=== PATIENT | female | born 1940 | race Caucasian/White ===

== ENCOUNTER 2021-08-11 16:16 | Inpatient (IN) | payer MEDICARE ==
[~2021-08-11] VITALS: Ht 147.3 cm; Wt 92.7 kg
[~2021-08-11 16:16] MED LIST: ASPI325T8 PO; BACL10TA PO; HYDR-2145 PO; HYDR-2765 PO; HYDROCORTISONE28 G1 TP; IBUP-1060 PO; LEVE500T56 PO; LISI-130 PO; LORA2TAB PO; OXYC1TAB15 PO; PRED20TA PO; TRAM50TA PO
--- NOTE | 2021-08-11 16:22 | PHYS DOC ---
Past Medical History Past Medical History: CHF, COPD, Hypertension Additional Past Medical Histor: Restless leg syndrome, STROKE >5YRS, UTERINE CANCER Past Surgical History: Hysterectomy Smoking Status: Former Smoker Alcohol Use: Occasionally Drug Use: None General Adult EDM: Chief Complaint: SHORTNESS OF BREATH HPI: HPI: Patient is a 80 year old female brought in by EMS for progressively worsening dyspnea for the past several weeks. The patient is an extremely poor historian. She cannot articulate any specific details of her illness. She wears supplemental oxygen at all times. She reports that she is not sure why she does so. Records indicate she has a history of COPD. Patient denies chest pain. She has had progressive lower extremity swelling for some time. She reports that she started coughing yesterday. She denies sputum production or hemoptysis. She denies fevers or chills. She denies dizziness. She is generally weak, denies focal weakness. Denies any acute injury or trauma. She denies recent hospitalization, travel, surgery. No recent known sick contacts. Her granddaughter reports that the patient is a full code. The patient is an extremely poor historian, does not know any of her medications. She reports that her granddaughter and her son help give her medications, though she is not sure what they are. On arrival she appears to be in atrial fibrillation with RVR. The patient has no known history of any arrhythmia. Records here do not indicate a history of A. fib Review of Systems: Review of Systems: Constitutional: Denies fever or chills. [] HENT: Denies nasal congestion or sore throat. [] Respiratory: Cough, dyspnea Cardiovascular: Denies chest pain. Peripheral edema. GI: Denies abdominal pain, nausea, vomiting : Denies urinary symptoms Musculoskeletal: Denies back pain or joint pain. [] Integument: Denies rash. [] Neurologic: Denies headache, focal weakness or sensory changes. Denies weakness. Denies head injury, syncope. Psychiatric: Denies depression or anxiety. [] Heart Score: C/O Chest Pain: No Risk Factors: Risk Factors: DM, Current or recent (<one month) smoker, HTN, HLP, family history of CAD, obesity. Risk Scores: Score 0 - 3: 2.5% MACE over next 6 weeks - Discharge Home Score 4 - 6: 20.3% MACE over next 6 weeks - Admit for Clinical Observation Score 7 - 10: 72.7% MACE over next 6 weeks - Early Invasive Strategies Allergies: Allergies: Allergies Coded Allergies Type Severity Reaction Last Updated Verified Penicillins Allergy Intermediate 06/15/21 Yes Sulfa (Sulfonamide Antibiotics) Allergy Intermediate 06/15/21 Yes Physical Exam: PE: Constitutional: She is very frail and chronically ill-appearing. She is moderately acutely ill appearing. Manifests at least moderate respiratory distress. She is relatively disheveled. HENT: Normocephalic, atraumatic, oropharynx is patent and clear Eyes: Sclera are anicteric. Mild conjunctival pallor Neck: Normal range of motion, no tenderness, supple, no stridor. Achy midline. JVD noted. Cardiovascular:; Irregularly irregular, tachycardic, rhythm consistent with atrial fibrillation with RVR. +2 radial pulses and +2 dorsalis pedis pulses bilaterally Lungs & Thorax: Moderate tachypnea, no retractions, speaks in full and clear sentences. Bibasilar rales and rhonchi noted. No wheezes. No cyanosis. Abdomen: Abdomen is obese, soft, nondistended, nontender to palpation. Skin: Warm, dry, no erythema, no rash. Relatively poor skin turgor. Back: No tenderness, no deformity Extremities: No tenderness, no cyanosis, no clubbing, ROM intact, bilateral 2+ symmetric pitting lower extremity edema Neurologic: He is awake, alert and oriented x3, no facial asymmetry, moves all 4 extremities equally, bilateral seismic computer strength equal, sensation grossly intact, she manifest symmetric and generalized weakness. Speech is fluent. Psychologic: Affect is flat EKG: EKG: EKG is interpreted at 1630 Rhythm is atrial fibrillation with RVR Rate is 141 bpm No STEMI Radiology/Procedures: Radiology/Procedures: IMAGING REPORT Signed PATIENT: NISREEN MONTES DE OCA ACCOUNT: [id number] : 1940 LOCATION: ER AGE: 80 SEX: F EXAM STATUS: PRE ER ORD. PHYSICIAN: KRISTI REAGAN DO REASON: dyspnea, cough PROCEDURE: PORTABLE CHEST 1V AP chest. HISTORY: Dyspnea, cough AP view was taken of the chest. Patient's taken a poor inspiration. The heart is enlarged. There is density in both lung bases suggesting pleural effusions. There is mild atelectasis or infiltrates in the lung bases more on the left than on the right. Mild vascular congestion is possible. There is arthritis in both shoulders. IMPRESSION: 1. Probable pleural effusions. 2. Left base atelectasis or infiltrate. 3. Mild vascular congestion. Electronically signed by: Kwabena Swain MD (08/11/2021 4:42 PM) [facility] DICTATED and SIGNED BY: KWABENA SWAIN MD DATE: 08/11/21 [id number] 0 Course & Med Decision Making: Course & Med Decision Making Pertinent Labs and Imaging studies reviewed. (See chart for details) P.o. aspirin given. IV of diltiazem bolus and diltiazem drip are ordered. Subcutaneous Lovenox is ordered. IV furosemide is ordered. Chest x-ray demonstrates pulmonary edema and bibasilar pleural effusions. I have discussed the findings, differential diagnosis and plan of care with the patient. The patient's granddaughter is contacted. The patient is comfortable with the plan for admission to the hospital. Advanced directive is full code. I have recommended hospitalization for normally further evaluation care of new onset atrial fibrillation, but management of congestive heart failure exacerbation, continued respiratory support and cardiology consultation. The patient is comfortable with this plan. She is accepted for admission by Dr. Mai Lyon. Filippo Disclaimer: Filippo Disclaimer: This electronic medical record was generated, in whole or in part, using a voice recognition dictation system. Departure Departure Impression: Primary Impression: Atrial fibrillation with rapid ventricular response Additional Impressions: Congestive heart failure Pleural effusion Pulmonary edema Chronic respiratory failure with hypoxia Disposition: ADMITTED INPATIENT Admitting Physician: Mai Lyon Condition: GUARDED Referrals: MAI LYON MD (PCP) KRISTI REAGAN DO Aug 11, 2021 16:22
--- NOTE | 2021-08-11 16:44 | RAD ---
AP chest. HISTORY: Dyspnea, cough AP view was taken of the chest. Patient's taken a poor inspiration. The heart is enlarged. There is d ensity in both lung bases suggesting pleural effusions. There is mild atelectasis or infiltrates in t he lung bases more on the left than on the right. Mild vascular congestion is possible. There is arth ritis in both shoulders. IMPRESSION: 1. Probable pleural effusions. 2. Left base atelectasis or infiltrate. 3. Mild vascular congestion. Electronically signed by: Kwabena Swain MD (08/11/2021 4:42 PM) [facility]
[2021-08-11 17:12] LABS: BASO # 0.1 x10^3/uL (0.0-0.2); BASO % 1 % (0-3); EOS % 0 % (0-3); HEMATOCRIT 40.6 % (36.0-47.0); HEMOGLOBIN 12.9 g/dL (12.0-15.5); LYMPH # 1.2 x10^3/uL (1.0-4.8); LYMPH % 11 % (24-48); MEAN CORPUSCULAR HEMOGLOBIN 28 pg (25-35); MEAN CORPUSCULAR HGB CONC 32 g/dL (31-37); MEAN CORPUSCULAR VOLUME 88 fL (79-100); MONO # 0.6 x10^3/uL (0.0-1.1); MONO % 5 % (0-9); NEUT # 9.2 x10^3/uL (1.8-7.7); NEUT % 83 % (31-73); PLATELET COUNT 271 x10^3/uL (140-400); RED BLOOD COUNT 4.63 x10^6/uL (3.50-5.40); RED CELL DISTRIBUTION WIDTH 18.1 % (11.5-14.5); WHITE BLOOD COUNT 11.1 x10^3/uL (4.0-11.0)
[2021-08-11 17:21] LABS: PROTHROMBIN TIME PATIENT 13.6 SEC (11.7-14.0)
[2021-08-11 17:30] LABS: CALCIUM 8.8 mg/dL (8.5-10.1); CREATININE 0.8 mg/dL (0.6-1.0); GFR 68.8; POTASSIUM 4.7 mmol/L (3.5-5.1)
[2021-08-11 17:35] LABS: ALBUMIN 3.2 g/dL (3.4-5.0); ALBUMIN/GLOBULIN RATIO 0.7 (1.0-1.7); TOTAL PROTEIN 7.9 g/dL (6.4-8.2)
[2021-08-11 17:53] LABS: INFLUENZA A PATIENT NEGATIVE (NEGATIVE); INFLUENZA B PATIENT NEGATIVE (NEGATIVE)
[2021-08-11] MEDS ORDERED: FUROSEMIDE 20 MG/2 ML VIAL. IVP ONE (19:15)
--- NOTE | 2021-08-11 19:30 | NUR ---
Pt arrived to room 675 per cart pt assisted to bed vs obtained and stable tele monitor applied pt. Assessment completed pt denied pain at this time pt is a poor historian. Call light placed in reach will resume care and continue to monitor pt.
[2021-08-11 19:37] VITALS: BP 132/58
[2021-08-11] MEDS ORDERED: ONDANSETRON PF 4 MG/2 ML VIAL. IVP PRN (20:00)
[2021-08-11] MEDS ORDERED: ACETAMINOPHEN 325 MG TABLET. PO PRN (20:00)
[2021-08-11 20:18] VITALS: BP 138/76
[2021-08-11 21:18] VITALS: BP 143/75
[2021-08-11 22:07] VITALS: BP 156/67
[2021-08-11 22:18] VITALS: BP 136/55
[2021-08-11 23:18] VITALS: BP 146/80
[2021-08-12] VITALS (20 sets, daily range): BP systolic 103–169; BP diastolic 52–87
--- NOTE | 2021-08-12 08:34 | PDOC ---
Provider Note Date of Service: DATE: 08/12/21 TIME: 08:34 Provider Note dictated Justifications for Admission Other Justification MAI LYON MD Aug 12, 2021 08:34
[2021-08-12] MEDS ORDERED: FUROSEMIDE 40 MG/4 ML VIAL. IVP ONE (08:45)
[2021-08-12] MEDS: levETIRAcetam 500 MG TABLET PO SCH ×2 (09:00→21:11)
--- NOTE | 2021-08-12 09:35 | PDOC2 ---
ZAIRA CHI DISH PERSON 08/12/21 0935: CARDIAC CONSULT DATE OF CONSULT Date of Consult DATE: 08/12/21 TIME: 09:27 REASON FOR CONSULT Reason for Consult: CHF, AFIB REFERRING PHYSICIAN Referring Physician: Dr. Coates SOURCE Source: Chart review, Patient HISTORY OF PRESENT ILLNESS HISTORY OF PRESENT ILLNESS This is an 80 yo female who presented secondary to shortness of breath. Was noted in AFIB with RVR, which prompted this consult. PAST MEDICAL HISTORY Cardiovascular: CHF, HTN Pulmonary: COPD CENTRAL NERVOUS SYSTEM: CVA GI: GERD Heme/Onc: Cancer (uterine ) Psych: Anxiety Musculoskeletal: Osteoarthritis PAST SURGICAL HISTORY Past Surgical History: Hysterectomy FAMILY HISTORY Family History: Hypertension SOCIAL HISTORY Smoke: Quit ALCOHOL: none Drugs: None Lives: with Family CURRENT MEDICATIONS CURRENT MEDICATIONS Current Medications Medications (Trade) Dose Ordered Sig/Silke Route PRN Reason Start Time Stop Time Status Last Admin Dose Admin Diltiazem HCl (Cardizem Iv Push) 10 mg 1X ONCE IVP 08/11/21 16:45 08/11/21 16:46 DC 08/11/21 17:07 Diltiazem HCl 125 mg/Sodium Chloride 125 ml @ 5 mls/hr CONT PRN IV PER PROTOCOL 08/11/21 19:15 08/12/21 05:15 Furosemide (Lasix) 20 mg 1X ONCE IVP 08/11/21 19:15 08/11/21 19:16 DC 08/11/21 20:14 Enoxaparin Sodium (Lovenox 100mg Syringe) 100 mg 1X ONCE SQ 08/11/21 19:15 08/11/21 19:16 DC 08/11/21 20:14 ALLERGIES ALLERGIES: Coded Allergies: Penicillins (Verified Allergy, Intermediate, 06/15/21) Sulfa (Sulfonamide Antibiotics) (Verified Allergy, Intermediate, 06/15/21) ROS Review of System 14 point ROS conducted with pertinent positives noted above in HPI PHYSICAL EXAM General: Alert, Oriented X3, Cooperative, No acute distress HEENT: Atraumatic, Mucous membr. moist/pink Lungs: Other (diminished bases) Heart: Other (AFIB, rate controlled ) Abdomen: Soft Extremities: Other (trace bilateral pedal edema ) Skin: No significant lesion Neuro: Sensation intact Psych/Mental Status: Mental status NL, Mood NL MUSCULOSKELETAL: Osteoarthritic changes both hands VITALS/I&O VITALS/I&O: Vital Signs Date Time Temp Pulse Resp B/P (MAP) Pulse Ox O2 Delivery O2 Flow Rate FiO2 08/12/21 07:00 97.6 98 18 159/82 (107) 97 Nasal Cannula 3.0 97.6 I & O 08/11/21 08/11/21 08/12/21 15:00 23:00 07:00 Intake Total 340 ml 100 ml Output Total 1625 ml Balance 340 ml -1525 ml LABS Lab: Laboratory Tests Test 08/11/21 16:50 08/11/21 17:09 White Blood Count 11.1 x10^3/uL (4.0-11.0) H Red Blood Count 4.63 x10^6/uL (3.50-5.40) Hemoglobin 12.9 g/dL (12.0-15.5) Hematocrit 40.6 % (36.0-47.0) Mean Corpuscular Volume 88 fL (79-100) Mean Corpuscular Hemoglobin 28 pg (25-35) Mean Corpuscular Hemoglobin Concent 32 g/dL (31-37) Red Cell Distribution Width 18.1 % (11.5-14.5) H Platelet Count 271 x10^3/uL (140-400) Neutrophils (%) (Auto) 83 % (31-73) H Lymphocytes (%) (Auto) 11 % (24-48) L Monocytes (%) (Auto) 5 % (0-9) Eosinophils (%) (Auto) 0 % (0-3) Basophils (%) (Auto) 1 % (0-3) Neutrophils # (Auto) 9.2 x10^3/uL (1.8-7.7) H Lymphocytes # (Auto) 1.2 x10^3/uL (1.0-4.8) Monocytes # (Auto) 0.6 x10^3/uL (0.0-1.1) Eosinophils # (Auto) 0.0 x10^3/uL (0.0-0.7) Basophils # (Auto) 0.1 x10^3/uL (0.0-0.2) Prothrombin Time 13.6 SEC (11.7-14.0) Prothrombin Time INR 1.0 (0.8-1.1) Activated Partial Thromboplast Time 31 SEC (24-38) Sodium Level 141 mmol/L (136-145) Potassium Level 4.7 mmol/L (3.5-5.1) Chloride Level 94 mmol/L (98-107) L Carbon Dioxide Level 42 mmol/L (21-32) H Anion Gap 5 (6-14) L Blood Urea Nitrogen 23 mg/dL (7-20) H Creatinine 0.8 mg/dL (0.6-1.0) Estimated GFR (Cockcroft-Gault) 68.8 BUN/Creatinine Ratio 29 (6-20) H Glucose Level 122 mg/dL (70-99) H Lactic Acid Level 1.6 mmol/L (0.4-2.0) Calcium Level 8.8 mg/dL (8.5-10.1) Magnesium Level 2.0 mg/dL (1.8-2.4) Total Bilirubin 1.0 mg/dL (0.2-1.0) Aspartate Amino Transferase (AST) 15 U/L (15-37) Alanine Aminotransferase (ALT) 15 U/L (14-59) Alkaline Phosphatase 76 U/L (46-116) Troponin I High Sensitivity 16 ng/L (4-50) QZ-Mtg-S-Type Natriuretic Peptide 4059 pg/mL (0-449) H Total Protein 7.9 g/dL (6.4-8.2) Albumin 3.2 g/dL (3.4-5.0) L Albumin/Globulin Ratio 0.7 (1.0-1.7) L Influenza Type A Antigen Negative (NEGATIVE) Influenza Type B Antigen Negative (NEGATIVE) SARS-CoV-2 Antigen (Rapid) Negative (NEGATIVE) Laboratory Tests 08/11/21 16:50 Laboratory Tests 08/11/21 16:50 ASSESSMENT/PLAN ASSESSMENT/PLAN 1. Acute on chronic respiratory failure 2. Acute on chronic probable diastolic CHF; improved s/p IV diuresis 3. New onset AFIB presenting with RVR; On Cardizem gtt for rate control. Xarelto added for stroke prophylaxis 4. Hypertension; mildly elevated 5. Hyperlipidemia 6. COPD 7. H/o CVA Recommendations TSH, lipids Echo to assess LV systolic function Mild diuresis Start oral Cardizem for rate control Titrate off gtt as able Xarelto added for stroke prophylaxis Outpatient ischemic evaluation Consider outpatient cardioversion if patient remains in AFIB Supportive care Further pending above. KIMBERLEY JUAREZ MD 08/12/21 1707: CARDIAC CONSULT ASSESSMENT/PLAN ASSESSMENT/PLAN Patient seen and examined. Agree with SPEECH SCIENTIST's assessment and plan. Acute on chronic diastolic heart failure better compensated Atrial fibrillation, newly diagnosed, rate better controlled Change Cardizem gtt. to p.o. Agree with Xarelto for stroke prophylaxis Check 2D echo to assess LV systolic function Plan outpatient cardioversion and ischemic evaluation Thank you for your consultation ZAIRA CHI APRN Aug 12, 2021 09:35 KIMBERLEY JUAREZ MD Aug 12, 2021 17:07
[2021-08-12] MEDS: LISINOPRIL 20 MG TABLET PO SCH (09:53)
[2021-08-12] MEDS: hydroCHLOROthiazide 25 MG TABLET PO SCH (09:53)
[2021-08-12] MEDS: traMADol 50 MG TABLET PO SCH ×2 (09:54→21:11)
--- NOTE | 2021-08-12 11:03 | HP ---
DATE OF SERVICE: 08/12/2021 ADMIT DATE: 08/11/2021 CHIEF COMPLAINT: Shortness of breath. HISTORY OF PRESENT ILLNESS: An 80-year-old white female with known oxygen-dependent COPD and mild diabetes, came in short of breath for the last 2 or 3 days. She denies chest pain, hemoptysis, fever, sputum or any other specific symptoms. She lives apparently in a smoking household, but does not smoke herself. Chest x-ray showed mild pleural effusions and she was found to be in atrial fibrillation with rapid response. Duration of this is unknown and has not been determined before. PAST MEDICAL HISTORY: Multiple. MEDICATIONS: Listed per the chart. She is a diet-controlled diabetic. ALLERGIES: PENICILLIN AND SULFA. She has not come to the office regularly given her wheelchair bound status. SOCIAL HISTORY: Lives with family. She has not smoked for 10 years. Denies alcohol abuse or high salt intake. FAMILY HISTORY: Unremarkable. REVIEW OF SYSTEMS: No other complaints. OBJECTIVE: ENT: All within normal limits. NECK: No thyroid enlargement, masses, or bruits. LUNGS: Decreased breath sounds with few scattered wheezes. No tachypnea. CARDIOVASCULAR: Irregular rate, rate is 90-100. No S3 or murmurs heard. ABDOMEN: Obese, soft and nontender. EXTREMITIES: No pretibial edema. Good pedal and radial pulses. No joint or skin lesions. NEUROLOGIC: Physiologic and nonfocal. Gait was not tested. Moves all extremities. Oriented x 4. ASSESSMENT: Atrial fibrillation with rapid ventricular response, duration is undetermined. Etiology most likely chronic obstructive pulmonary disease, but could have underlying cardiomyopathy or even coronary artery disease as well. Her chronic obstructive pulmonary disease is stable. Blood work unremarkable. PLAN: TSH, echo, IV Lasix, IV diltiazem and we will add Xarelto for now for embolic prophylaxis given her high risk status. BAM/ARIANNA DR: Lilliam TID: [id number]
[2021-08-12] MEDS: IPRATRPIUM/ALBUTEROL 0.5/2.5MG 3 ML NEBU. NEB SCH ×3 (12:00→20:00)
--- NOTE | 2021-08-12 14:43 | NUR ---
SS following for discharge planning. SS reviewed pt chart and discussed with pt RN. Pt is from home with granddaughter and is currently requiring oxygen at three liters nasal canula. COVID19 negative. No home oxygen. PT ordered. Cardiology following. SS will continue to follow for discharge planning.
[2021-08-12] MEDS: RIVAROXABAN 15 MG TABLET. PO SCH (16:36)
[2021-08-12] MEDS ORDERED: CARB200T4 PO (18:58)
--- NOTE | 2021-08-12 19:50 | NUR ---
Pt in bed assessment completed vss poc explained dpt reoriented to surroundings will resume care and continue to monitor pt. Call light in reach bed alarm set.
[2021-08-12] MEDS ORDERED: NALOXONE 0.4 MG/ML VIAL. ONE ×2 (23:25→23:30)
--- NOTE | 2021-08-12 23:50 | NUR ---
Pt o2 sat decreased to 72% after Scheduled HS Ativan and tramadol pt placed on venti mask @50% pt spo2 93% will monitor pt.
[2021-08-13 02:22] VITALS: BP 137/63
[2021-08-13 05:40] LABS: CHOLESTEROL/HDL RATIO 2.5
[2021-08-13 07:00] VITALS: BP 132/59
[2021-08-13] MEDS: levETIRAcetam 500 MG TABLET PO SCH (07:45)
[2021-08-13] MEDS: IPRATRPIUM/ALBUTEROL 0.5/2.5MG 3 ML NEBU. NEB SCH ×4 (08:00→20:00)
--- NOTE | 2021-08-13 08:27 | PDOC ---
Provider Note Date of Service: DATE: 08/13/21 TIME: 08:26 Provider Note sedated after loraz. may not take at home- tsh ok, echo pending , af rate ok on po- cont same,reduce loraz to 0.5, echo- rest same Justifications for Admission Other Justification MAI LYON MD Aug 13, 2021 08:27
[2021-08-13] MEDS ORDERED: traMADol 50 MG TABLET PO PRN (08:30)
[2021-08-13] MEDS: hydroCHLOROthiazide 25 MG TABLET PO SCH (09:40)
[2021-08-13] MEDS: LISINOPRIL 20 MG TABLET PO SCH (09:41)
[2021-08-13 11:00] VITALS: BP 140/60
--- NOTE | 2021-08-13 14:32 | NUR ---
SS following up with discharge planning. SS reviewed pt chart and discussed with pt RN. Pt is currently requiring oxygen at two liters nasal canula. COVID19 negative. Pt has no home oxygen. Cardiology following. SS will continue to follow for discharge planning.
[2021-08-13 15:00] VITALS: BP 133/68
--- NOTE | 2021-08-13 16:32 | PDOC ---
PROGRESS NOTES Date of Service: DATE: 08/13/21 TIME: 16:29 Subjective Subjective Somnolent Objective Objective Vital Signs Date Time Temp Pulse Resp B/P (MAP) Pulse Ox O2 Delivery O2 Flow Rate FiO2 08/13/21 15:00 97.8 91 20 133/68 (89) 95 Nasal Cannula 2.0 97.8 Intake and Output 08/13/21 07:00 Intake Total 660 ml Output Total 3150 ml Balance -2490 ml Intake Oral 660 ml Output Urine Total 3150 ml Physical Exam Abdomen: Soft Heart: Other (AFIB, rate controlled ) Extremities: Other (trace bilateral pedal edema ) General: Alert, Oriented X3, Cooperative, No acute distress HEENT: Atraumatic, Mucous membr. moist/pink Lungs: Other (diminished bases) MUSCULOSKELETAL: Osteoarthritic changes both hands Neuro: Sensation intact Psych/Mental Status: Mental status NL, Mood NL Skin: No significant lesion Assessment Assessment 1. Acute on chronic respiratory failure 2. Acute on chronic probable diastolic CHF; improved s/p IV diuresis 3. New onset AFIB presenting with RVR; rate better controlled 4. Hypertension; controlled 5. Hyperlipidemia 6. COPD 7. H/o CVA Recommendations Continue Cardizem for rate control and Xarelto for stroke prophylaxis Echo to assess LV systolic function pending Outpatient ischemic evaluation Consider outpatient cardioversion if patient remains in AFIB Plan Plan of Care Problems Medical Problems: (1) Atrial fibrillation with rapid ventricular response Status: Acute (2) CHF exacerbation Status: Acute (3) Chronic respiratory failure Status: Acute (4) Chronic respiratory failure with hypoxia Status: Acute (5) Congestive heart failure Status: Acute (6) Pleural effusion Status: Acute (7) Pulmonary edema Status: Acute Comment Review of Relevant I have reviewed the following items mehul (where applicable) has been applied. Labs Laboratory Tests Test 08/13/21 04:00 Triglycerides Level 81 mg/dL (0-150) Cholesterol Level 130 mg/dL (0-200) LDL Cholesterol, Calculated 61 mg/dL (0-100) VLDL Cholesterol, Calculated 16 mg/dL (0-40) Non-HDL Cholesterol Calculated 77 mg/dL (0-129) HDL Cholesterol 53 mg/dL (40-60) Cholesterol/HDL Ratio 2.5 Microbiology 08/11/21 Blood Culture - Preliminary, Resulted NO GROWTH AFTER 1 DAY Medications Current Medications Diltiazem HCl (Cardizem 24hr Cd) 300 mg DAILY PO Last administered on 08/13/21at 09:40; Start 08/12/21 at 17:00 Lorazepam (Ativan) 0.5 mg HS PO ; Start 08/13/21 at 21:00 Lorazepam (Ativan) 2 mg HS PO Last administered on 08/12/21at 21:11; Start 08/12/21 at 21:00; Stop 08/13/21 at 08:25; Status DC Naloxone HCl (Narcan) 0.4 mg STK-MED ONCE .ROUTE ; Start 08/12/21 at 23:25; Stop 08/12/21 at 23:25; Status DC Naloxone HCl (Narcan) 0.4 mg STK-MED ONCE .ROUTE ; Start 08/12/21 at 23:30; Stop 08/13/21 at 08:32; Status DC Rivaroxaban (Xarelto) 15 mg DAILYWSUP PO Last administered on 08/12/21at 16:36; Start 08/12/21 at 17:00 Tramadol HCl (Ultram) 50 mg PRN BID PRN PO MUSCLE PAIN Last administered on 08/13/21at 09:41; Start 08/13/21 at 08:30 Vitals/I & O Vital Sign - Last 24 Hours 08/12/21 08/12/21 08/12/21 08/12/21 16:36 17:00 18:00 19:40 Temp 97.5 97.5 Pulse 96 102 106 Resp 18 B/P (MAP) 169/67 158/74 (102) 116/52 (73) Pulse Ox 96 O2 Delivery Nasal Cannula Nasal Cannula O2 Flow Rate 3.0 3.0 08/12/21 08/12/21 08/12/21 08/13/21 21:11 21:41 22:37 00:00 Temp 96.8 96.8 Pulse 91 Resp 16 18 18 B/P (MAP) 145/57 (86) Pulse Ox 96 96 98 92 O2 Delivery Nasal Cannula Nasal Cannula Nasal Cannula Venturi Mask O2 Flow Rate 3.0 3.0 3.0 15.0 08/13/21 08/13/21 08/13/21 08/13/21 02:22 07:00 08:00 09:40 Temp 97.5 98.3 97.5 98.3 Pulse 87 88 88 Resp 18 20 B/P (MAP) 137/63 (87) 132/59 (83) 132/59 Pulse Ox 95 96 O2 Delivery Venturi Mask Venturi Mask Venturi Mask O2 Flow Rate 15.0 15.0 15.0 08/13/21 08/13/21 08/13/21 08/13/21 09:41 09:41 10:11 11:00 Temp 97.4 97.4 Pulse 88 100 Resp 20 B/P (MAP) 132/59 140/60 (86) Pulse Ox 96 95 94 O2 Delivery Venturi Mask Nasal Cannula Nasal Cannula O2 Flow Rate 15.0 2.0 2.0 08/13/21 15:00 Temp 97.8 97.8 Pulse 91 Resp 20 B/P (MAP) 133/68 (89) Pulse Ox 95 O2 Delivery Nasal Cannula O2 Flow Rate 2.0 Intake and Output 08/12/21 08/12/21 08/13/21 15:00 23:00 07:00 Intake Total 380 ml 280 ml 0 ml Output Total 1500 ml 1450 ml 200 ml Balance -1120 ml -1170 ml -200 ml KIMBERLEY JUAREZ MD Aug 13, 2021 16:32
[2021-08-13] MEDS: RIVAROXABAN 15 MG TABLET. PO SCH (17:35)
[2021-08-13 19:00] VITALS: BP 152/66
[2021-08-13] MEDS: LORazepam 0.5 MG TABLET PO SCH (21:04)
[2021-08-13 22:57] VITALS: BP 127/60
[2021-08-14 03:09] VITALS: BP 137/62
[2021-08-14] MEDS: IPRATRPIUM/ALBUTEROL 0.5/2.5MG 3 ML NEBU. NEB SCH ×4 (07:52→21:11)
--- NOTE | 2021-08-14 08:13 | PN ---
DATE: 08/14/2021 LOCATION: She is in room 675. SUBJECTIVE: This 80-year-old female admitted with AFib with rapid ventricular response, worsening shortness of breath and evidence of some probable heart failure with echo pending at this point in time to determine systolic function. She realizes she is somewhat confused this morning and not sure what is going on. She was reoriented during the exam. She states sometimes her breathing is pretty good and other time, she is not sure it is good. OBJECTIVE: VITAL SIGNS: Stable. She is afebrile. She is awake and alert. HEAD, EYES, EARS, NOSE AND THROAT: Unremarkable. She does have O2 per nasal cannula at 3 liters. CHEST: Distant breath sounds, clear. HEART: Irregular with a rate in the 90s. ABDOMEN: Benign. No significant edema. NEUROLOGIC: Nonfocal. She is COVID and influenza negative. Output has been greater than intake. She is on Cardizem for rate control. ASSESSMENT: Atrial fibrillation with rapid ventricular response with currently controlled rate; congestive heart failure, clinically improving with echo pending; acute on chronic respiratory failure. PLAN: Continue Cardizem, Xarelto. Await echo. Otherwise, same. ANA/CAITIE DR: ANA/marcelo TID: [id number]
[2021-08-14] MEDS: hydroCHLOROthiazide 25 MG TABLET PO SCH (08:34)
[2021-08-14] MEDS: LISINOPRIL 20 MG TABLET PO SCH (08:38)
--- NOTE | 2021-08-14 09:46 | PDOC ---
PROGRESS NOTES Date of Service: DATE: 08/14/21 TIME: 09:46 Subjective Subjective Less confused today. Shortness of breath improved. Objective Objective Vital Signs Date Time Temp Pulse Resp B/P (MAP) Pulse Ox O2 Delivery O2 Flow Rate FiO2 08/14/21 08:38 88 131/60 08/14/21 08:00 Nasal Cannula 3.0 08/14/21 07:54 97 08/14/21 03:09 97.9 18 97.9 Intake and Output 08/14/21 07:00 Intake Total 0 ml Output Total 400 ml Balance -400 ml Intake Oral 0 ml Output Urine Total 400 ml Physical Exam Abdomen: Soft Heart: Other (AFIB, rate controlled ) Extremities: Other (trace bilateral pedal edema ) General: Alert, Oriented X3, Cooperative, No acute distress HEENT: Atraumatic, Mucous membr. moist/pink Lungs: Other (diminished bases) MUSCULOSKELETAL: Osteoarthritic changes both hands Neuro: Sensation intact Psych/Mental Status: Mental status NL, Mood NL Skin: No significant lesion Assessment Assessment 1. Acute on chronic respiratory failure 2. Acute on chronic probable diastolic CHF; improved s/p IV diuresis 3. New onset AFIB presenting with RVR; rate better controlled. Telemetry showed brief wide-complex rhythm, most probably AF with aberrant conduction 4. Hypertension; controlled 5. Hyperlipidemia 6. COPD 7. H/o CVA Recommendations Check BMP and magnesium levels Continue Cardizem for rate control and Xarelto for stroke prophylaxis Plan outpatient 2D echo and ischemic evaluation Consider outpatient cardioversion if patient remains in AFIB Plan Plan of Care Problems Medical Problems: (1) Atrial fibrillation with rapid ventricular response Status: Acute (2) CHF exacerbation Status: Acute (3) Chronic respiratory failure Status: Acute (4) Chronic respiratory failure with hypoxia Status: Acute (5) Congestive heart failure Status: Acute (6) Pleural effusion Status: Acute (7) Pulmonary edema Status: Acute Comment Review of Relevant I have reviewed the following items mehul (where applicable) has been applied. Labs Microbiology 08/11/21 Blood Culture - Preliminary, Resulted NO GROWTH AFTER 2 DAYS Medications Current Medications Lorazepam (Ativan) 0.5 mg HS PO Last administered on 08/13/21at 21:04; Start 08/13/21 at 21:00 Vitals/I & O Vital Sign - Last 24 Hours 08/13/21 08/13/21 08/13/2122 10:11 11:00 15:00 19:00 Temp 97.4 97.8 98.7 97.4 97.8 98.7 Pulse 100 91 86 Resp 20 20 18 B/P (MAP) 140/60 (86) 133/68 (89) 152/66 (94) Pulse Ox 95 94 95 92 O2 Delivery Nasal Cannula Nasal Cannula Nasal Cannula Nasal Cannula O2 Flow Rate 2.0 2.0 2.0 2.5 08/13/21 08/13/21 08/14/21 08/14/21 19:05 22:57 03:09 07:54 Temp 97.7 97.9 97.7 97.9 Pulse 93 92 Resp 18 18 B/P (MAP) 127/60 (82) 137/62 (87) Pulse Ox 94 95 97 O2 Delivery Nasal Cannula Nasal Cannula Venturi Mask Nasal Cannula O2 Flow Rate 3.0 2.5 4.0 08/14/21 08/14/21 08/14/21 08:00 08:37 08:38 Pulse 88 88 B/P (MAP) 131/60 131/60 O2 Delivery Nasal Cannula O2 Flow Rate 3.0 Intake and Output 08/13/21 08/13/21 08/14/21 15:00 23:00 07:00 Intake Total 0 ml Output Total 400 ml Balance -400 ml KIMBERLEY JUAREZ MD Aug 14, 2021 09:46
[2021-08-14 11:00] VITALS: BP 139/77
[2021-08-14 15:12] LABS: BLOOD UREA NITROGEN 15 mg/dL (7-20); CALCIUM 8.5 mg/dL (8.5-10.1); CHLORIDE 85 mmol/L (98-107); CREATININE 0.9 mg/dL (0.6-1.0); GFR 60.1; GLUCOSE 173 mg/dL (70-99); MAGNESIUM 1.3 mg/dL (1.8-2.4); POTASSIUM 3.5 mmol/L (3.5-5.1); SODIUM 133 mmol/L (136-145)
[2021-08-14 15:13] LABS: CARBON DIOXIDE > 45 mmol/L (21-32)
[2021-08-14 15:14] VITALS: BP 120/59
[2021-08-14] MEDS: RIVAROXABAN 15 MG TABLET. PO SCH (17:21)
[2021-08-14] MEDS ORDERED: MAGNESIUM SULFATE 2GM 50 ML IV ONE (17:30)
[2021-08-14 19:00] VITALS: BP 138/61
--- NOTE | 2021-08-14 19:30 | NUR ---
Pt in bed assessment completed vss poc explained pt confused and forgetful stating she does not know what is going on. Pt reoriented to surroundings and call light bed alarm is set will resume care and continue to monitor pt. Pt denied pain at this time.
[2021-08-14] MEDS: LORazepam 0.5 MG TABLET PO SCH (20:22)
[2021-08-14 22:53] VITALS: BP 140/66
[2021-08-15 02:31] VITALS: BP 145/65
[2021-08-15 07:00] VITALS: BP 168/67
[2021-08-15] MEDS: IPRATRPIUM/ALBUTEROL 0.5/2.5MG 3 ML NEBU. NEB SCH ×4 (08:00→21:21)
--- NOTE | 2021-08-15 08:29 | PDOC ---
PROGRESS NOTES Date of Service: DATE: 08/15/21 TIME: 08:29 Subjective Subjective More alert, feeling better today Objective Objective Vital Signs Date Time Temp Pulse Resp B/P (MAP) Pulse Ox O2 Delivery O2 Flow Rate FiO2 08/15/21 08:05 Nasal Cannula 3.0 08/15/21 07:00 98.3 90 12 168/67 (100) 91 98.3 Intake and Output 08/15/21 07:00 Intake Total 290 ml Output Total 1100 ml Balance -810 ml Intake Oral 290 ml Output Urine Total 1100 ml Physical Exam Abdomen: Soft Heart: Other (AFIB, rate controlled ) Extremities: Other (trace bilateral pedal edema ) General: Alert, Oriented X3, Cooperative, No acute distress HEENT: Atraumatic, Mucous membr. moist/pink Lungs: Other (diminished bases) MUSCULOSKELETAL: Osteoarthritic changes both hands Neuro: Sensation intact Psych/Mental Status: Mental status NL, Mood NL Skin: No significant lesion Assessment Assessment 1. Acute on chronic respiratory failure 2. Acute on chronic probable diastolic CHF; improved s/p IV diuresis 3. New onset AFIB presenting with RVR; rate better controlled. Telemetry showed brief wide-complex rhythm, most probably AF with aberrant conduction 4. Hypertension; controlled 5. Hyperlipidemia 6. COPD 7. H/o CVA Recommendations Replace magnesium Continue Cardizem for rate control and Xarelto for stroke prophylaxis Plan outpatient 2D echo and ischemic evaluation Consider outpatient cardioversion if patient remains in AFIB Plan Plan of Care Problems Medical Problems: (1) Atrial fibrillation with rapid ventricular response Status: Acute (2) CHF exacerbation Status: Acute (3) Chronic respiratory failure Status: Acute (4) Chronic respiratory failure with hypoxia Status: Acute (5) Congestive heart failure Status: Acute (6) Pleural effusion Status: Acute (7) Pulmonary edema Status: Acute Comment Review of Relevant I have reviewed the following items mehul (where applicable) has been applied. Labs Laboratory Tests Test 08/14/21 14:55 Sodium Level 133 mmol/L (136-145) Potassium Level 3.5 mmol/L (3.5-5.1) Chloride Level 85 mmol/L (98-107) Carbon Dioxide Level > 45 mmol/L (21-32) Anion Gap (6-14) Blood Urea Nitrogen 15 mg/dL (7-20) Creatinine 0.9 mg/dL (0.6-1.0) Estimated GFR (Cockcroft-Gault) 60.1 Glucose Level 173 mg/dL (70-99) Calcium Level 8.5 mg/dL (8.5-10.1) Magnesium Level 1.3 mg/dL (1.8-2.4) Microbiology 08/11/21 Blood Culture - Preliminary, Resulted NO GROWTH AFTER 3 DAYS Medications Current Medications Magnesium Sulfate 50 ml @ 25 mls/hr 1X ONCE IV Last administered on 08/14/21at 17:43; Start 08/14/21 at 17:30; Stop 08/14/21 at 19:29; Status DC Vitals/I & O Vital Sign - Last 24 Hours 08/14/21 08/14/21 08/14/21 08/14/21 08:37 08:38 11:00 11:46 Temp 97.5 97.5 Pulse 88 88 93 Resp 18 B/P (MAP) 131/60 131/60 139/77 (97) Pulse Ox 96 94 O2 Delivery Nasal Cannula Nasal Cannula O2 Flow Rate 4.0 4.0 08/14/21 08/14/21 08/14/21 08/14/21 15:14 15:56 19:00 19:25 Temp 97.6 97.8 97.6 97.8 Pulse 76 74 Resp 18 20 B/P (MAP) 120/59 (79) 138/61 (86) Pulse Ox 94 96 94 O2 Delivery Nasal Cannula Nasal Cannula Nasal Cannula Nasal Cannula O2 Flow Rate 4.0 4.0 4.0 3.0 08/14/21 08/14/21 08/15/21 08/15/21 21:12 22:53 02:31 07:00 Temp 97.3 97.8 98.3 97.3 97.8 98.3 Pulse 81 86 90 Resp 18 18 12 B/P (MAP) 140/66 (90) 145/65 (91) 168/67 (100) Pulse Ox 95 97 94 91 O2 Delivery Nasal Cannula Nasal Cannula Nasal Cannula Nasal Cannula O2 Flow Rate 4.0 4.0 4.0 4.0 08/15/21 08:05 O2 Delivery Nasal Cannula O2 Flow Rate 3.0 Intake and Output 08/14/21 08/14/21 08/15/21 15:00 23:00 07:00 Intake Total 240 ml 0 ml 50 ml Output Total 600 ml 500 ml Balance 240 ml -600 ml -450 ml KIMBERLEY JUAREZ MD Aug 15, 2021 08:29
[2021-08-15] MEDS: hydroCHLOROthiazide 25 MG TABLET PO SCH (08:49)
[2021-08-15] MEDS: LISINOPRIL 20 MG TABLET PO SCH (08:49)
[2021-08-15 11:00] VITALS: BP 148/65
[2021-08-15 15:00] VITALS: BP 148/64
[2021-08-15] MEDS ORDERED: MAGNESIUM SULFATE 2GM 50 ML IV ONE (16:30)
[2021-08-15] MEDS ORDERED: POTASSIUM CHLORIDE 20 MEQ TABLET.ER. PO ONE (16:30)
[2021-08-15] MEDS: RIVAROXABAN 15 MG TABLET. PO SCH (17:07)
[2021-08-15 18:58] LABS: CALCIUM 8.5 mg/dL (8.5-10.1); CREATININE 0.7 mg/dL (0.6-1.0); GFR 80.3; MAGNESIUM 1.6 mg/dL (1.8-2.4); POTASSIUM 3.5 mmol/L (3.5-5.1)
[2021-08-15] MEDS: LORazepam 0.5 MG TABLET PO SCH (19:21)
[2021-08-15 19:26] VITALS: BP 144/65
--- NOTE | 2021-08-15 19:38 | PN ---
DATE: 08/15/2021 LOCATION: She is in room 675. SUBJECTIVE: This 80-year-old female admitted with atrial fibrillation with rapid ventricular response, worsening shortness of breath, evidence of some heart failure with echocardiogram still not done. She remains confused this morning thinking it is either Monday or , but knows she is at [place]. She feels like her breathing is still not good. OBJECTIVE: VITAL SIGNS: Stable. She is afebrile. GENERAL: Awake, alert, but confused. Nasal cannula O2 at present. CHEST: Distant breath sounds. HEART: Regular with a rate in the 80s. ABDOMEN: Benign. NEUROLOGIC: Nonfocal. Output remains greater than intake, although she is just on hydrochlorothiazide as a diuretic. ASSESSMENT: 1. Atrial fibrillation with rapid ventricular response with currently controlled rate. 2. Congestive heart failure, clinically improved with echo still not done. 3. Chronic respiratory failure. PLAN: Await echo. Continue present treatment. Follow labs. PERRY DR: Roxie TID: [id number]
[2021-08-15 22:07] VITALS: BP 134/60
[2021-08-16 02:09] VITALS: BP 166/77
[2021-08-16 05:45] LABS: CALCIUM 8.3 mg/dL (8.5-10.1); CREATININE 0.6 mg/dL (0.6-1.0); GFR 95.9; POTASSIUM 3.6 mmol/L (3.5-5.1)
[2021-08-16] MEDS: IPRATRPIUM/ALBUTEROL 0.5/2.5MG 3 ML NEBU. NEB SCH ×4 (06:53→19:31)
[2021-08-16 07:00] VITALS: BP 155/70
[2021-08-16] MEDS: hydroCHLOROthiazide 25 MG TABLET PO SCH (08:09)
[2021-08-16] MEDS: LISINOPRIL 20 MG TABLET PO SCH (08:09)
--- NOTE | 2021-08-16 08:16 | PDOC ---
Provider Note Date of Service: DATE: 08/16/21 TIME: 08:15 Provider Note echo pending, rest stable, she does not take loraz at home so dc- will need snf and she agrees Justifications for Admission Other Justification MAI LYON MD Aug 16, 2021 08:16
[2021-08-16 10:41] VITALS: BP 144/63
--- NOTE | 2021-08-16 11:06 | PDOC ---
ZAIRA CHI TARGET WORKER 08/16/21 1105: CARDIO Progress Notes Date and Time Date of Service 08/16/21 Time of Evaluation 1100 Subjective Subjective: No Chest Pain, No shortness of breath, No Palpitations Vitals Vitals Vital Signs Date Time Temp Pulse Resp B/P (MAP) Pulse Ox O2 Delivery O2 Flow Rate FiO2 08/16/21 10:41 97.4 73 18 144/63 (90) 86 Nasal Cannula 4.0 97.4 Weight Weight [ ] Input and Output Intake and Output Intake and Output 08/16/21 06:59 Intake Total 170 ml Output Total 400 ml Balance -230 ml Intake Oral 120 ml IV Total 50 ml Output Urine Total 400 ml Laboratory Labs Laboratory Tests Test 08/15/21 18:00 08/16/21 04:50 Sodium Level 125 mmol/L (136-145) 129 mmol/L (136-145) Potassium Level 3.5 mmol/L (3.5-5.1) 3.6 mmol/L (3.5-5.1) Chloride Level 82 mmol/L (98-107) 84 mmol/L (98-107) Carbon Dioxide Level 42 mmol/L (21-32) 42 mmol/L (21-32) Anion Gap 1 (6-14) 3 (6-14) Blood Urea Nitrogen 14 mg/dL (7-20) 12 mg/dL (7-20) Creatinine 0.7 mg/dL (0.6-1.0) 0.6 mg/dL (0.6-1.0) Estimated GFR (Cockcroft-Gault) 80.3 95.9 Glucose Level 130 mg/dL (70-99) 130 mg/dL (70-99) Calcium Level 8.5 mg/dL (8.5-10.1) 8.3 mg/dL (8.5-10.1) Magnesium Level 1.6 mg/dL (1.8-2.4) 1.8 mg/dL (1.8-2.4) Microbiology Micro Microbiology 08/11/21 Blood Culture - Preliminary, Resulted NO GROWTH AFTER 4 DAYS Physical Exam HEENT: Neck Supple W Full Motion Chest: Symmetric LUNGS: Other (diminished bases) Heart: irregularly irregular (AFIB, rate controlled ) Abdomen: Soft N/T, Other (obese) Extremities: No Edema Neurology: alert, oriented, follow commands Assessment Assessment 1. Acute on chronic respiratory failure 2. Acute on chronic probable diastolic CHF; improved s/p IV diuresis 3. New onset AFIB presenting with RVR; rate better controlled. Telemetry showed brief wide-complex rhythm /6, most probably AF with aberrant conduction 4. Hypertension; controlled 5. Hyperlipidemia 6. COPD 7. H/o CVA 8. Hypomagnesemia Recommendations Continue Cardizem for rate control Xarelto for stroke prophylaxis Plan outpatient ischemic evaluation Consider outpatient cardioversion if patient remains in AFIB Supportive care Justicifation of Admission Dx: Justifications for Admission: Justification of Admission Dx: Yes CHF: Cardiac Arrhythmias (AFIB) KIMBERLEY JUAREZ MD 08/16/21 1535: CARDIO Progress Notes Assessment Assessment Patient seen and examined. Agree with MOVING PICTURE OPERATOR's assessment and plan. Acute on chronic diastolic heart failure better compensated Atrial fibrillation rate better controlled Plan for outpatient ischemic evaluation and cardioversion ZAIRA CHI APRN Aug 16, 2021 11:05 KIMBERLEY JUAREZ MD Aug 16, 2021 15:35
[2021-08-16] MEDS ORDERED: PERFLUTREN PROTEIN-A MICROSPHR 0.22 MG/ML 3 ML VIAL. IV ONE ×3 (12:30→15:00)
--- NOTE | 2021-08-16 13:02 | NUR ---
MEDICATION NOTE: PERFLUTREN GIVEN BY MRI ASSISTANT
--- NOTE | 2021-08-16 13:35 | NUR ---
SS following up with discharge planning. SS reviewed pt chart and discussed with pt RN. Pt is currently requiring oxygen at four liters nasal canula. Dr. Walsh requesting senior care unit at discharge. PT/OT ordered. SS met with pt and discussed with pt's son via phone. Pt and pt's son agreeable to senior care unit and requested referral to [facility], ; fax [phone]. COVID19 PCR test requested for placement. Currently awaiting PT/OT evaluations and will send referral once received. SS will continue to follow for discharge planning.
[2021-08-16 14:40] VITALS: BP 114/58
--- NOTE | 2021-08-16 16:55 | CARD ---
MR#: [id number] Date of Study: 08/16/2021 Ordering Physician: MAI LYON, Referring Physician: MAI LYON Tech: Moraima Sanchez BONITA APPROVED REPORT EXAM: Two-dimensional and M-mode echocardiogram with Doppler and color Doppler. Other Information Quality : Technically LimitedHR: 64bpm Rhythm : Atrial FibrillationTechnically limited study due to body habitus. INDICATION Atrial Fibrillation Echo Enhancing Agent Indication: Endocardial border delineation Agent/Amount Used: Optison 2mL RISK FACTORS Hypertension Obesity Hyperlipidemia Diabetes 2D DIMENSIONS Left Atrium(2D)4.0 (1.6-4.0cm)IVSd1.0 (0.7-1.1cm) Aortic Root(2D)3.0 (2.0-3.7cm)LVDd5.1 (3.9-5.9cm) LVOT Diameter2.1 (1.8-2.4cm)PWd1.1 (0.7-1.1cm) LVDs3.9 (2.5-4.0cm)FS (%) 23.2 % SV57.2 mlLVEF(%)46.3 (>50%) Tricuspid Valve TR P. [id number]/sTR Peak Gr.34mmHg LEFT VENTRICLE The left ventricle is normal size. There is borderline concentric left ventricular hypertrophy. The l eft ventricular systolic function is normal and the ejection fraction is within normal range. Estimat ed ejection fraction 65%. There is grossly normal LV segmental wall motion. Septal mostion suggestive of prior sternotomy. RIGHT VENTRICLE The right ventricle is normal size. There is normal right ventricular wall thickness. The right ventr icular systolic function is normal. ATRIA The left atrium is mildly dilated. The right atrium is mildly dilated. Atrial septum not well visuali zed. AORTIC VALVE The aortic valve is grossly normal in structure and function. There is no significant aortic valvular stenosis. MITRAL VALVE The mitral valve is calcified but opens well. Mitral annular calcification is moderate. There is no e vidence of mitral valve prolapse. There is no mitral valve stenosis. TRICUSPID VALVE The tricuspid valve is normal in structure and function. Doppler and Color Flow revealed mild tricusp id regurgitation. Estimated PAP 45-50 mmHg. There is no tricuspid valve stenosis. GREAT VESSELS The aortic root is normal in size. PERICARDIAL EFFUSION There is no evidence of significant pericardial effusion. Critical Notification Critical Value: No <Conclusion> The left ventricular systolic function is normal and the ejection fraction is within normal range. E stimated ejection fraction 65%. There is grossly normal LV segmental wall motion. Septal mostion suggestive of prior sternotomy. Doppler and Color Flow revealed mild tricuspid regurgitation. Estimated PAP 45-50 mmHg. Signed by : Cody Rendon, Electronically Approved : 08/16/2021 16:54:53
[2021-08-16] MEDS: RIVAROXABAN 15 MG TABLET. PO SCH (17:25)
[2021-08-16 19:45] VITALS: BP 137/60
[2021-08-16 23:10] VITALS: BP 142/58
[2021-08-17 02:50] VITALS: BP 128/61
[2021-08-17 07:00] VITALS: BP 136/63
--- NOTE | 2021-08-17 08:04 | PDOC ---
Provider Note Date of Service: DATE: 08/17/21 TIME: 08:03 Provider Note vss, no temp, exam same- placement pending, meds same, echo pending Justifications for Admission Other Justification MAI LYON MD Aug 17, 2021 08:04
[2021-08-17] MEDS: IPRATRPIUM/ALBUTEROL 0.5/2.5MG 3 ML NEBU. NEB SCH ×4 (08:28→20:53)
[2021-08-17] MEDS: LISINOPRIL 20 MG TABLET PO SCH (09:04)
[2021-08-17] MEDS: hydroCHLOROthiazide 12.5 MG CAPSULE PO SCH (09:04)
--- NOTE | 2021-08-17 10:25 | NUR ---
SS following up with discharge planning. SS reviewed pt chart and discussed with pt RN. Pt is currently requiring oxygen at four liters nasal canula. PT/OT recommended snf unit. Pt and family requesting referral to [facility], ; fax [phone]. COVID19 PCR test pending for placement. Referral phoned and faxed as requested. SS will continue to follow for discharge planning. Addendum: 08/17/21 at 1032 by CRYS GALLAGHER Pt accepted at [facility] pending insurance approval. Addendum: 08/17/21 at 1554 by CRYS PÉREZ SS COVID19 PCR test negative and sent to [facility].
--- NOTE | 2021-08-17 10:46 | PDOC ---
ZAIRA CHI APRN 08/17/21 1046: CARDIO Progress Notes Date and Time Date of Service 08/17/21 Time of Evaluation 1045 Subjective Subjective: No Chest Pain, No shortness of breath, No Palpitations Vitals Vitals Vital Signs Date Time Temp Pulse Resp B/P (MAP) Pulse Ox O2 Delivery O2 Flow Rate FiO2 08/17/21 09:04 76 136/63 08/17/21 08:31 98 Nasal Cannula 4.0 08/17/21 07:00 97.7 18 97.7 Weight Weight [ ] Input and Output Intake and Output Intake and Output 08/17/21 07:00 Intake Total 1420 ml Balance 1420 ml Intake Oral 1420 ml # Voids 5 # Bowel Movements 3 Microbiology Micro Microbiology 08/11/21 Blood Culture - Final, Complete NO GROWTH AFTER 5 DAYS Physical Exam HEENT: Neck Supple W Full Motion Chest: Symmetric LUNGS: Other (diminished bases) Heart: irregularly irregular (AFIB, rate controlled ) Abdomen: Soft N/T, Other (obese) Extremities: No Edema Neurology: alert, oriented, follow commands Assessment Assessment 1. Acute on chronic respiratory failure 2. Acute on chronic diastolic CHF; improved s/p IV diuresis. Echo with preserved LV systolic function 3. New onset AFIB presenting with RVR; rate now controlled. 4. Hypertension; controlled 5. Hyperlipidemia 6. COPD 7. H/o CVA 8. Hypomagnesemia; replaced Recommendations Continue Cardizem for rate control Xarelto for stroke prophylaxis Plan outpatient ischemic evaluation and cardioversion if patient remains in AFIB Supportive care Follow up in our office with Dr. Marrufo has been arranged Justicifation of Admission Dx: Justifications for Admission: Justification of Admission Dx: Yes CHF: Cardiac Arrhythmias (AFIB) KIMBERLEY MARRUFO MD 08/17/21 1551: CARDIO Progress Notes Assessment Assessment Patient seen and examined. Agree with CARDIOTHORACIC SURGEON's assessment and plan. Acute on chronic diastolic heart failure better compensated Atrial fibrillation rate better controlled Plan for outpatient ischemic evaluation and cardioversion ZAIRA CHI APRN Aug 17, 2021 10:46 KIMBERLEY MARRUFO MD Aug 17, 2021 15:51
[2021-08-17 11:00] VITALS: BP 136/62
[2021-08-17 15:00] VITALS: BP 109/58
[2021-08-17] MEDS: RIVAROXABAN 15 MG TABLET. PO SCH (16:24)
[2021-08-17 19:00] VITALS: BP 132/63
[2021-08-17 22:30] VITALS: BP 122/52
[2021-08-18 02:45] VITALS: BP 124/58
[2021-08-18 07:00] VITALS: BP 153/66
[2021-08-18] MEDS: IPRATRPIUM/ALBUTEROL 0.5/2.5MG 3 ML NEBU. NEB SCH ×3 (07:31→15:33)
--- NOTE | 2021-08-18 07:58 | SNU/HH DC ---
DISCHARGE ORDERS DISCHARGE INFORMATION: FINAL DIAGNOSIS Problems Medical Problems: (1) Atrial fibrillation with rapid ventricular response Status: Acute (2) CHF exacerbation Status: Acute (3) Chronic respiratory failure Status: Acute (4) Chronic respiratory failure with hypoxia Status: Acute (5) Congestive heart failure Status: Acute (6) Pleural effusion Status: Acute (7) Pulmonary edema Status: Acute CONDITION ON DISCHARGE: Stable CODE STATUS: Code Status: Full NURSING HOME: SNF STAY <30 DAYS: Yes POST DISCHARGE ORDERS: ACTIVITY ORDERS: Activity as tolerated WEIGHT BEARING STATUS: As tolerated DIET AFTER DISCHARGE: Regular WOUND/INCISION CARE: Other, see below TREATMENT/EQUIPMENT ORDERS: ADAPTIVE EQUIPMENT NEEDED: None DISCHARGE MEDICATIONS: Home Meds Reported Medications Carbamazepine (CARBAMAZEPINE) 200 Mg Tablet, 200 MG PO BID for ., TAB 08/12/21 Levetiracetam (KEPPRA) 500 Mg Tablet, 1 TAB PO BID, #180 TAB 3 Refills 02/22/17 Ibuprofen (IBUPROFEN) 800 Mg Tablet, 1 TAB PO TID PRN for PAIN, #90 TAB 1 Refill 01/01/15 Tramadol Hcl (TRAMADOL HCL) 50 Mg Tablet, 50 MG PO BID 06/22/13 Lorazepam (LORAZEPAM) 2 Mg Tablet, 2 MG PO HS 06/22/13 Aspirin (ASPIRIN) 325 Mg Tablet, 325 MG PO DAILY 06/22/13 Hydrocortisone/Aloe Vera (HYDROCORTISONE 1% OINTMENT) 28 Gm Oint...g., 28 GM TP DAILY 06/22/13 Hydrochlorothiazide (HYDROCHLOROTHIAZIDE TABLET ) 25 Mg Tablet, 25 MG PO DAILY 06/22/13 Lisinopril (LISINOPRIL) 40 Mg Tablet, 40 MG PO DAILY 06/22/13 Discontinued Reported Medications Baclofen (BACLOFEN) 10 Mg Tablet, 5 MG PO TID for MUSCLE RELAXER, #30 TAB 0 Refills 05/11/15 MAI LYON MD Aug 18, 2021 07:58
--- NOTE | 2021-08-18 08:01 | PDOC ---
Provider Note Date of Service: DATE: 08/18/21 TIME: 08:01 Provider Note [id number] Justifications for Admission Other Justification MAI LYON MD Aug 18, 2021 08:01
[2021-08-18] MEDS: hydroCHLOROthiazide 12.5 MG CAPSULE PO SCH (08:41)
[2021-08-18] MEDS: LISINOPRIL 20 MG TABLET PO SCH (08:41)
[2021-08-18 10:47] VITALS: BP 119/51
--- NOTE | 2021-08-18 10:54 | PDOC ---
ZAIRA CHI APRN 08/18/21 1054: CARDIO Progress Notes Date and Time Date of Service 08/18/21 Time of Evaluation 1050 Subjective Subjective: No Chest Pain, No shortness of breath, No Palpitations, No Dizziness Vitals Vitals Vital Signs Date Time Temp Pulse Resp B/P (MAP) Pulse Ox O2 Delivery O2 Flow Rate FiO2 08/18/21 10:47 97.5 85 20 119/51 (73) 99 Nasal Cannula 4.0 97.5 Weight Weight [ ] Input and Output Intake and Output Intake and Output 08/18/21 07:00 Intake Total 1020 ml Balance 1020 ml Intake Oral 1020 ml # Voids 5 Microbiology Micro Microbiology 08/11/21 Blood Culture - Final, Complete NO GROWTH AFTER 5 DAYS Physical Exam HEENT: Neck Supple W Full Motion Chest: Symmetric LUNGS: Other (diminished bases) Heart: irregularly irregular (AFIB, rate controlled ) Abdomen: Soft N/T, Other (obese) Extremities: No Edema Neurology: alert, oriented, follow commands Assessment Assessment 1. Acute on chronic respiratory failure 2. Acute on chronic diastolic CHF; improved s/p IV diuresis. Echo with prese rved LV systolic function 3. New onset AFIB presenting with RVR; rate now controlled. 4. Hypertension; controlled 5. Hyperlipidemia 6. COPD 7. H/o CVA 8. Hypomagnesemia; replaced Recommendations Continue Cardizem for rate control Xarelto for stroke prophylaxis Plan outpatient ischemic evaluation and cardioversion if patient remains in AFIB Supportive care Follow up in our office with Dr. Marrufo has been arranged Justicifation of Admission Dx: Justifications for Admission: Justification of Admission Dx: Yes CHF: Cardiac Arrhythmias (AFIB) KIMBERLEY MARRUFO MD 08/18/21 1726: CARDIO Progress Notes Assessment Assessment Patient seen and examined. Agree with LINING SETTER's assessment and plan. Acute on chronic diastolic heart failure better compensated Atrial fibrillation rate better controlled Plan for outpatient ischemic evaluation and cardioversion ZAIRA CHI APRN Aug 18, 2021 10:54 KIMBERLEY MARRUFO MD Aug 18, 2021 17:26
--- NOTE | 2021-08-18 12:45 | DS ---
DATE OF DISCHARGE: 08/17/2021 HOSPITAL SUMMARY: An 80-year-old white female with oxygen-dependent COPD, came in with atrial fibrillation with rapid ventricular response. Chemistry profile, TSH and CBC were all within normal limits. Chest x-ray showed minimal pleural effusions. Echocardiogram showed good ejection fraction of 60%. No sign of any mitral valve disease and elevated pulmonary artery pressures present. She was treated with IV diltiazem and then oral diltiazem and control of her atrial rate pretty well. Eliquis was resumed. She has been off that drug at home, this increased stroke risk. Xarelto was substituted for this and doing well with that and she is going [facility] for [facility] supportive care. Multiple home meds have been stopped at this point, it is too sedating. FINAL DIAGNOSES: 1. Atrial fibrillation with rapid ventricular response. 2. Chronic obstructive pulmonary disease, oxygen dependent. 3. Chronic kidney disease 2. OPERATIONS, PROCEDURES, AND COMPLICATIONS: None. CONSULTATION: Dr. Rendon. DISPOSITION: Meds are same as current with Xarelto 15 mg daily as an anticoagulant and limited BIODIESEL PRODUCTION ASSOCIATE active drugs. She wishes to be full code. This will continue. Diet regular. Activity as tolerated. Prognosis guarded because of advanced stage COPD at home environment which includes active smokers. [facility]: TERESITA/marcelo TID: [id number]
--- NOTE | 2021-08-18 13:07 | NUR ---
SS following up with discharge planning. SS reviewed pt chart and discussed with pt RN. Pt is currently requiring oxygen at four liters nasal canula. COVID19 negative. PT/OT recommended snf unit. Pt accepted at [facility], ; fax [phone]. Insurance authorization received. Discharge orders phoned and faxed to [facility]. Pt will discharge today and [facility] Pt, pt's RN, and pt's family notified. Addendum: 08/18/21 at 1353 by CRYS PÉREZ Pt discharging between 1600 and 1630. Pt's RN and pt's family notified.
--- NOTE | 2021-08-18 16:05 | NUR ---
REPORT CALLED TO [facility]. [place] ADDED TO MED ORDERS. PT PICKED UP BY [facility] FOR TRANSPORT.
== END 2021-08-18 16:00 | DRG 308 ==
LOC: ER 16:16 → 6 SOUTH 17:40
PROVIDERS: ADMIT Family Medicine; ATTEND Family Medicine
DX: I48.91 Unspecified atrial fibrillation (principal); I50.33 Acute on chronic diastolic (congestive) heart failure; J96.21 Acute and chronic respiratory failure with hypoxia; I13.0 Hypertensive heart and chronic kidney disease with heart failure and stage 1 through stage 4 chronic kidney disease, or unspecified chronic kidney disease; E11.22 Type 2 diabetes mellitus with diabetic chronic kidney disease; E78.5 Hyperlipidemia, unspecified; E83.42 Hypomagnesemia; G25.81 Restless legs syndrome; J44.9 Chronic obstructive pulmonary disease, unspecified; M19.011 Primary osteoarthritis, right shoulder; F41.9 Anxiety disorder, unspecified; K21.9 Gastro-esophageal reflux disease without esophagitis; M19.90 Unspecified osteoarthritis, unspecified site; Z20.822 Contact with and (suspected) exposure to COVID-19; M19.012 Primary osteoarthritis, left shoulder; N18.2 Chronic kidney disease, stage 2 (mild); Z82.49 Family history of ischemic heart disease and other diseases of the circulatory system; Z85.42 Personal history of malignant neoplasm of other parts of uterus; Z86.73 Personal history of transient ischemic attack (TIA), and cerebral infarction without residual deficits; Z87.891 Personal history of nicotine dependence; Z90.710 Acquired absence of both cervix and uterus; Z99.81 Dependence on supplemental oxygen; Z88.0 Allergy status to penicillin; Z88.2 Allergy status to sulfonamides
CPT/HCPCS: 96374; 99285; C8924; 36415; 71045; 80048; 80053; 80061; 83605; 83735; 83880; 84443; 84484; 85025; 85610; 85730; 87040; 87428; 94640; 94760; J1650; J1940; J2310; J3475; J3490; Q9956; U0003; 97530-GO; 97530-GP; 97535-GO; G0378

== ENCOUNTER 2021-09-05 11:51 | Inpatient (IN) | payer MEDICARE ==
[~2021-09-05] VITALS: Ht 144.8 cm; Wt 87.7 kg
[~2021-09-05 11:51] MED LIST changes: +CARB200T4 PO
--- NOTE | 2021-09-05 12:15 | ED.ADGEN ---
Past Medical History Past Medical History: CHF, COPD, Hypertension Additional Past Medical Histor: Restless leg syndrome, STROKE >5YRS, UTERINE CANCER Past Surgical History: Hysterectomy Smoking Status: Never Smoker Alcohol Use: None Drug Use: None General Adult HPI: HPI: Patient is a 80 year old female coming in from home via EMS for right knee pain. Patient had a fall onto her knees from her wheelchair 2 days ago. Was able to be picked up by family. Patient is wheelchair-bound. Patient denies any prior injury to that knee. Patient was recently hospitalized to [facility] facility and recently turned home. Per EMS patient was at home with granddaughter and son. Patient denies any loss of consciousness or other injuries. Review of Systems: Review of Systems: All other systems within normal limits except for as noted in the HPI Current Medications: Current Medications Medications (Trade) Dose Ordered Sig/Silke Start Time Stop Time Status Last Admin Dose Admin Acetaminophen (Tylenol) 1,000 mg 1X ONCE 09/05/21 15:45 09/05/21 15:46 DC Allergies: Allergies: Allergies Coded Allergies Type Severity Reaction Last Updated Verified Penicillins Allergy Intermediate 09/05/21 Yes Sulfa (Sulfonamide Antibiotics) Allergy Intermediate 09/05/21 Yes Physical Exam: PE: Constitutional: Well developed, well nourished, no acute distress, non-toxic appearance. [] HENT: Normocephalic, atraumatic, bilateral external ears normal, nose normal. [] Eyes: PERRLA, conjunctiva normal, no discharge. [] Neck: No rigidity, supple, no stridor. [] Cardiovascular: Regular rate and rhythm, brisk cap refill [] Lungs & Thorax: Non labored symmetric respirations, no tachypnea or respiratory distress [] Abdomen: Soft, nondistended, obese. Skin: Warm, dry, no erythema, no rash. Superficial abrasions on bilateral knees. Ecchymosis on bilateral arms and right lower leg [] Back: Unremarkable Extremities: No deformities, range of motion grossly intact, no lower extremity edema. No tenderness palpation on right upper, left upper, left lower extremity. No tenderness in hips, tenderness of right knee without deformity [] Neurologic: Alert and oriented X 3, no focal deficits noted. [] Psychologic: Affect normal, judgement normal, mood normal. [] Current Patient Data: Labs: Laboratory Tests Test 09/05/21 12:30 White Blood Count 9.8 x10^3/uL (4.0-11.0) Red Blood Count 4.71 x10^6/uL (3.50-5.40) Hemoglobin 13.5 g/dL (12.0-15.5) Hematocrit 41.5 % (36.0-47.0) Mean Corpuscular Volume 88 fL (79-100) Mean Corpuscular Hemoglobin 29 pg (25-35) Mean Corpuscular Hemoglobin Concent 33 g/dL (31-37) Red Cell Distribution Width 17.8 % (11.5-14.5) H Platelet Count 259 x10^3/uL (140-400) Neutrophils (%) (Auto) 61 % (31-73) Lymphocytes (%) (Auto) 28 % (24-48) Monocytes (%) (Auto) 7 % (0-9) Eosinophils (%) (Auto) 4 % (0-3) H Basophils (%) (Auto) 1 % (0-3) Neutrophils # (Auto) 6.0 x10^3/uL (1.8-7.7) Lymphocytes # (Auto) 2.7 x10^3/uL (1.0-4.8) Monocytes # (Auto) 0.6 x10^3/uL (0.0-1.1) Eosinophils # (Auto) 0.3 x10^3/uL (0.0-0.7) Basophils # (Auto) 0.1 x10^3/uL (0.0-0.2) Sodium Level 135 mmol/L (136-145) L Potassium Level 3.8 mmol/L (3.5-5.1) Chloride Level 96 mmol/L (98-107) L Carbon Dioxide Level 36 mmol/L (21-32) H Anion Gap 3 (6-14) L Blood Urea Nitrogen 22 mg/dL (7-20) H Creatinine 0.8 mg/dL (0.6-1.0) Estimated GFR (Cockcroft-Gault) 68.8 BUN/Creatinine Ratio 28 (6-20) H Glucose Level 115 mg/dL (70-99) H Calcium Level 8.9 mg/dL (8.5-10.1) Total Bilirubin 0.7 mg/dL (0.2-1.0) Aspartate Amino Transferase (AST) 17 U/L (15-37) Alanine Aminotransferase (ALT) 14 U/L (14-59) Alkaline Phosphatase 71 U/L (46-116) Total Protein 7.1 g/dL (6.4-8.2) Albumin 2.5 g/dL (3.4-5.0) L Albumin/Globulin Ratio 0.5 (1.0-1.7) L Laboratory Tests 09/05/21 12:30 Laboratory Tests 09/05/21 12:30 Vital Signs: Vital Signs Date Time Temp Pulse Resp B/P (MAP) Pulse Ox O2 Delivery O2 Flow Rate FiO2 09/05/21 11:58 97.6 131 22 151/100 (117) 97 Nasal Cannula 3.0 97.6 EKG: EKG: [] Heart Score: C/O Chest Pain: No Risk Factors: Risk Factors: DM, Current or recent (<one month) smoker, HTN, HLP, family history of CAD, obesity. Risk Scores: Score 0 - 3: 2.5% MACE over next 6 weeks - Discharge Home Score 4 - 6: 20.3% MACE over next 6 weeks - Admit for Clinical Observation Score 7 - 10: 72.7% MACE over next 6 weeks - Early Invasive Strategies Radiology/Procedures: Radiology/Procedures: [facility] [address], [place] [id number] IMAGING REPORT Signed PATIENT: NISREEN MONTES DE OCA ACCOUNT: [id number] : 1940 LOCATION: ER AGE: 80 SEX: F EXAM STATUS: REG ER ORD. PHYSICIAN: SHAHIDA SOOD MD REASON: fall PROCEDURE: KNEE RIGHT 3V Three-view right knee and two-view right tibia-fibula dated 09/05/2021. COMPARISON: None. INDICATION: Pain after fall. FINDINGS: 3 views of the right knee show normal bony alignment. No displaced fracture. Moderate tricompartmental hypertrophic change with chondrocalcinosis. Small joint effusion. No apparent loose body. 2 views of the right tibia fibula show normal bony alignment. No displaced fracture. No periostitis or bone destruction. IMPRESSION: 1. No apparent acute bony abnormality. 2. 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 3. Small knee joint effusion. If there is clinical concern for occult fracture or internal derangement, MRI could better evaluate. Electronically signed by: Miguel Johnson MD (09/05/2021 2:29 PM) [id number] DICTATED and SIGNED BY: MIGUEL JOHNSON MD DATE: 09/05/21 1428 [] Course & Med Decision Making: Course & Med Decision Making Pertinent Labs and Imaging studies reviewed. (See chart for details) Work-up. Patient is normally able to transition to wheelchair and back, does not able to. I often try to care for her bed. Discussed discharge with outpatient physical therapy follow-up versus admission for placement in a rehab facility, patient reluctantly opts to go to a rehab facility instead of home, does not think she will be able to get herself on her feet fast enough. [] Dragon Disclaimer: Dragon Disclaimer: This electronic medical record was generated, in whole or in part, using a voice recognition dictation system. Departure Departure Impression: Primary Impression: Right knee injury Additional Impressions: Fall Unable to transfer from bed to wheelchair Disposition: ADMITTED INPATIENT Admitting Physician: Mai Lyon Condition: STABLE Referrals: MAI LYON MD (PCP) Problem Qualifiers SHAHIDA SOOD MD Sep 05, 2021 12:14
[2021-09-05 12:43] LABS: BASO # 0.1 x10^3/uL (0.0-0.2); BASO % 1 % (0-3); EOS # 0.3 x10^3/uL (0.0-0.7); EOS % 4 % (0-3); HEMATOCRIT 41.5 % (36.0-47.0); HEMOGLOBIN 13.5 g/dL (12.0-15.5); LYMPH # 2.7 x10^3/uL (1.0-4.8); LYMPH % 28 % (24-48); MEAN CORPUSCULAR HEMOGLOBIN 29 pg (25-35); MEAN CORPUSCULAR HGB CONC 33 g/dL (31-37); MEAN CORPUSCULAR VOLUME 88 fL (79-100); MONO # 0.6 x10^3/uL (0.0-1.1); MONO % 7 % (0-9); NEUT % 61 % (31-73); PLATELET COUNT 259 x10^3/uL (140-400); RED BLOOD COUNT 4.71 x10^6/uL (3.50-5.40); RED CELL DISTRIBUTION WIDTH 17.8 % (11.5-14.5); WHITE BLOOD COUNT 9.8 x10^3/uL (4.0-11.0)
[2021-09-05 12:47] LABS: CALCIUM 8.9 mg/dL (8.5-10.1); CREATININE 0.8 mg/dL (0.6-1.0); GFR 68.8; POTASSIUM 3.8 mmol/L (3.5-5.1)
[2021-09-05 12:53] LABS: ALBUMIN 2.5 g/dL (3.4-5.0); ALBUMIN/GLOBULIN RATIO 0.5 (1.0-1.7); TOTAL BILIRUBIN 0.7 mg/dL (0.2-1.0); TOTAL PROTEIN 7.1 g/dL (6.4-8.2)
--- NOTE | 2021-09-05 14:32 | RAD ---
Three-view right knee and two-view right tibia-fibula dated 09/05/2021. COMPARISON: None. INDICATION: Pain after fall. FINDINGS: 3 views of the right knee show normal bony alignment. No displaced fracture. Moderate tricompartmenta l hypertrophic change with chondrocalcinosis. Small joint effusion. No apparent loose body. 2 views of the right tibia fibula show normal bony alignment. No displaced fracture. No periostitis o r bone destruction. IMPRESSION: 1. No apparent acute bony abnormality. 2. 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 3. Small knee joint effusion. If there is clinical concern for occult fracture or internal derangemen t, MRI could better evaluate. Electronically signed by: Miguel Johnson MD (09/05/2021 2:29 PM) [id number]
[2021-09-05] MEDS ORDERED: ACETAMINOPHEN 500 MG TABLET PO ONE (15:45)
[2021-09-05] MEDS ORDERED: ACETAMINOPHEN 325 MG TABLET. PO PRN (16:30)
[2021-09-05] MEDS: ONDANSETRON PF 4 MG/2 ML VIAL. IVP PRN (17:34)
[2021-09-05] MEDS: fentaNYL PF VIAL 100 MCG/2 ML VIAL IVP PRN (17:34)
[2021-09-05 19:49] VITALS: BP 89/49
[2021-09-05] MEDS ORDERED: RIVA15TA PO (21:00)
[2021-09-05] MEDS ORDERED: traMADol 50 MG TABLET PO SCH (21:00)
[2021-09-05 23:15] VITALS: BP 136/61
[2021-09-05] MEDS: levETIRAcetam 500 MG TABLET PO SCH (23:39)
[2021-09-05] MEDS: carBAMazepine 200 MG TABLET PO SCH (23:39)
[2021-09-06 03:25] VITALS: BP 112/51
[2021-09-06] MEDS: traMADol 50 MG TABLET PO PRN ×2 (03:45→21:41)
[2021-09-06] MEDS: ANTI-COAG MONITOR BY PHARMACY. MC PRN (03:47)
[2021-09-06] MEDS: fentaNYL PF VIAL 100 MCG/2 ML VIAL IVP PRN ×2 (06:37→10:54)
[2021-09-06 07:00] VITALS: BP 103/54
[2021-09-06] MEDS: carBAMazepine 200 MG TABLET PO SCH ×2 (08:18→21:41)
[2021-09-06] MEDS: RIVAROXABAN 15 MG TABLET. PO SCH (08:18)
[2021-09-06] MEDS: levETIRAcetam 500 MG TABLET PO SCH ×2 (08:18→21:41)
[2021-09-06 08:28] LABS: ALBUMIN 2.3 g/dL (3.4-5.0); ALBUMIN/GLOBULIN RATIO 0.5 (1.0-1.7); CALCIUM 8.6 mg/dL (8.5-10.1); CREATININE 0.9 mg/dL (0.6-1.0); GFR 60.1; POTASSIUM 3.6 mmol/L (3.5-5.1); TOTAL BILIRUBIN 0.5 mg/dL (0.2-1.0); TOTAL PROTEIN 6.5 g/dL (6.4-8.2)
[2021-09-06] MEDS: IPRATRPIUM/ALBUTEROL 0.5/2.5MG 3 ML NEBU. NEB SCH ×3 (09:00→20:20)
[2021-09-06] MEDS ORDERED: LISINOPRIL 20 MG TABLET PO SCH (09:00)
[2021-09-06] MEDS ORDERED: hydroCHLOROthiazide 25 MG TABLET PO SCH (09:00)
[2021-09-06] MEDS: ONDANSETRON PF 4 MG/2 ML VIAL. IVP PRN (09:53)
[2021-09-06 11:07] VITALS: BP 96/50
--- NOTE | 2021-09-06 12:05 | HP ---
DATE OF SERVICE: 09/06/2021 ADMIT DATE: 09/05/2021 CHIEF COMPLAINT: Fall and weakness. HISTORY OF PRESENT ILLNESS: An 80-year-old white female with oxygen-dependent COPD. The patient with a history of atrial fibrillation, had a fall at home and was unable to get up and family was not able to provide care for her at this time. She was found to have L2 fractures. In the Emergency Room, she was sleeping at this time. She was treated recently 2 weeks ago for respiratory failure due to atrial fibrillation, is back on Xarelto, respiratory treatments, stable in that regard. Chest x-ray was clear at this time. PAST MEDICAL HISTORY: Well documented per the old record. ALLERGIES: No known drug allergies are noted. MEDICATIONS: She was on Xarelto for anticoagulation. atrial fibrillation SOCIAL HISTORY: Lives with his . Stopped smoking many years ago, nondrinker. FAMILY HISTORY: Unremarkable. REVIEW OF SYSTEMS: No other complaints. OBJECTIVE: ENT: All within normal limits. NECK: No masses, nodes or bruits. LUNGS: Decreased breath sounds, few wheezes. CARDIOVASCULAR: Irregular rate consistent with atrial fibrillation, rate is about 100. ABDOMEN: Obese, soft, benign. EXTREMITIES: Unremarkable. Good radial pulses and distal pulses. NEUROLOGIC: Physiologic, nonfocal. ASSESSMENT: 1. Self-care deficits. 2. Oxygen-dependent chronic obstructive pulmonary disease. 3. Generalized deconditioning. 4. Atrial fibrillation, advanced age. PLAN: As ordered. She prefers full code status as of last admission. DOMONIQUE DR: Lilliam TID: [id number]
[2021-09-06 15:00] VITALS: BP 92/57
[2021-09-06 19:00] VITALS: BP 100/55
[2021-09-06 23:00] VITALS: BP 104/52
[2021-09-07 03:00] VITALS: BP 96/42
[2021-09-07 07:00] VITALS: BP 92/40
[2021-09-07] MEDS: IPRATRPIUM/ALBUTEROL 0.5/2.5MG 3 ML NEBU. NEB SCH ×3 (08:13→21:00)
--- NOTE | 2021-09-07 08:42 | PDOC ---
Provider Note Date of Service: DATE: 09/07/21 TIME: 08:41 Provider Note status same, labs ok, awaitng placement re self care deficit- bp lower so hold lisin also Justifications for Admission Other Justification MAI LYON MD Sep 07, 2021 08:42
[2021-09-07] MEDS: carBAMazepine 200 MG TABLET PO SCH ×2 (08:44→20:59)
[2021-09-07] MEDS: RIVAROXABAN 15 MG TABLET. PO SCH (08:44)
[2021-09-07] MEDS: levETIRAcetam 500 MG TABLET PO SCH ×2 (08:44→20:59)
[2021-09-07] MEDS: BACITRACIN TOPICAL OINT PACKET. TP SCH ×2 (09:00→20:59)
[2021-09-07] MEDS: ANTI-COAG MONITOR BY PHARMACY. MC PRN (09:47)
[2021-09-07] MEDS: traMADol 50 MG TABLET PO PRN ×2 (10:48→20:59)
[2021-09-07 11:00] VITALS: BP 93/45
[2021-09-07 15:00] VITALS: BP 113/56
[2021-09-07 19:15] VITALS: BP 93/52
[2021-09-07 23:03] VITALS: BP 92/57
[2021-09-08 07:00] VITALS: BP 89/43
[2021-09-08] MEDS: IPRATRPIUM/ALBUTEROL 0.5/2.5MG 3 ML NEBU. NEB SCH ×3 (07:40→18:10)
--- NOTE | 2021-09-08 08:24 | PDOC ---
Provider Note Date of Service: DATE: 09/08/21 TIME: 08:24 Provider Note status same, awaiting placement Justifications for Admission Other Justification MAI LYON MD Sep 08, 2021 08:24
[2021-09-08] MEDS: RIVAROXABAN 15 MG TABLET. PO SCH (08:32)
[2021-09-08] MEDS: levETIRAcetam 500 MG TABLET PO SCH ×2 (08:32→20:50)
[2021-09-08] MEDS: carBAMazepine 200 MG TABLET PO SCH ×2 (08:32→20:50)
[2021-09-08] MEDS: BACITRACIN TOPICAL OINT PACKET. TP SCH ×2 (08:32→20:50)
[2021-09-08] MEDS: ASCORBIC ACID 500 MG TABLET PO SCH (10:03)
[2021-09-08] MEDS: MULTIVITAMIN with MINERAL TABLET. PO SCH (10:03)
[2021-09-08] MEDS: ANTI-COAG MONITOR BY PHARMACY. MC PRN (10:40)
[2021-09-08 11:00] VITALS: BP 111/47
[2021-09-08] MEDS: traMADol 50 MG TABLET PO PRN (11:43)
--- NOTE | 2021-09-08 14:27 | NUR ---
Pt. c/o R knee pain and buttock pain. Dr. Nico lambert re: additional pain meds.
[2021-09-08 15:00] VITALS: BP 126/54
[2021-09-08 19:00] VITALS: BP 109/56
[2021-09-08 23:00] VITALS: BP 132/53
[2021-09-09 03:00] VITALS: BP 124/57
[2021-09-09] MEDS: traMADol 50 MG TABLET PO PRN ×2 (06:17→17:49)
[2021-09-09] MEDS: IPRATRPIUM/ALBUTEROL 0.5/2.5MG 3 ML NEBU. NEB SCH ×3 (06:57→18:29)
[2021-09-09 07:00] VITALS: BP 112/56
--- NOTE | 2021-09-09 08:16 | PDOC ---
Provider Note Date of Service: DATE: 09/09/21 TIME: 08:16 Provider Note no new sxs, placement pending Justifications for Admission Other Justification MAI LYON MD Sep 09, 2021 08:16
[2021-09-09] MEDS: carBAMazepine 200 MG TABLET PO SCH ×2 (08:36→21:05)
[2021-09-09] MEDS: RIVAROXABAN 15 MG TABLET. PO SCH (08:36)
[2021-09-09] MEDS: ASCORBIC ACID 500 MG TABLET PO SCH (08:36)
[2021-09-09] MEDS: MULTIVITAMIN with MINERAL TABLET. PO SCH (08:36)
[2021-09-09] MEDS: levETIRAcetam 500 MG TABLET PO SCH ×2 (08:36→21:05)
[2021-09-09] MEDS: BACITRACIN TOPICAL OINT PACKET. TP SCH ×2 (08:36→21:05)
[2021-09-09 11:00] VITALS: BP 112/56
[2021-09-09 15:00] VITALS: BP 109/79
[2021-09-09 19:00] VITALS: BP 128/73
[2021-09-09 23:14] VITALS: BP 135/68
[2021-09-10 03:19] VITALS: BP 121/62
[2021-09-10 07:00] VITALS: BP 133/60
[2021-09-10] MEDS: IPRATRPIUM/ALBUTEROL 0.5/2.5MG 3 ML NEBU. NEB SCH ×3 (07:48→19:50)
--- NOTE | 2021-09-10 08:19 | SNU/HH DC ---
DISCHARGE ORDERS DISCHARGE INFORMATION: FINAL DIAGNOSIS Problems Medical Problems: (1) Fall Status: Acute (2) Right knee injury Status: Acute (3) Unable to transfer from bed to wheelchair Status: Acute CONDITION ON DISCHARGE: Stable CODE STATUS: Code Status: Full HALF-WAY: SNF STAY <30 DAYS: Yes POST DISCHARGE ORDERS: ACTIVITY ORDERS: Activity as tolerated WEIGHT BEARING STATUS: As tolerated DIET AFTER DISCHARGE: Regular WOUND/INCISION CARE: Other, see below TREATMENT/EQUIPMENT ORDERS: ADAPTIVE EQUIPMENT NEEDED: None DISCHARGE MEDICATIONS: Home Meds Reported Medications Rivaroxaban (XARELTO) 15 Mg Tablet, 1 TAB PO DAILY for a-fib MDD 15 09/05/21 Carbamazepine (CARBAMAZEPINE) 200 Mg Tablet, 200 MG PO BID for ., TAB 08/12/21 Levetiracetam (KEPPRA) 500 Mg Tablet, 1 TAB PO BID, #180 TAB 3 Refills 02/22/17 Ibuprofen (IBUPROFEN) 800 Mg Tablet, 1 TAB PO TID PRN for PAIN, #90 TAB 1 Refill 01/01/15 Tramadol Hcl (TRAMADOL HCL) 50 Mg Tablet, 50 MG PO BID 06/22/13 Lorazepam (LORAZEPAM) 2 Mg Tablet, 2 MG PO HS 06/22/13 Aspirin (ASPIRIN) 325 Mg Tablet, 325 MG PO DAILY 06/22/13 Hydrocortisone/Aloe Vera (HYDROCORTISONE 1% OINTMENT) 28 Gm Oint...g., 28 GM TP DAILY 06/22/13 Hydrochlorothiazide (HYDROCHLOROTHIAZIDE TABLET ) 25 Mg Tablet, 25 MG PO DAILY 06/22/13 Lisinopril (LISINOPRIL) 40 Mg Tablet, 40 MG PO DAILY 06/22/13 MAI LYON MD Sep 10, 2021 08:19
--- NOTE | 2021-09-10 08:20 | PDOC ---
Provider Note Date of Service: DATE: 09/10/21 TIME: 08:19 Provider Note status same, dc when open Justifications for Admission Other Justification MAI LYON MD Sep 10, 2021 08:20
[2021-09-10] MEDS: carBAMazepine 200 MG TABLET PO SCH ×2 (08:34→20:31)
[2021-09-10] MEDS: MULTIVITAMIN with MINERAL TABLET. PO SCH (08:34)
[2021-09-10] MEDS: levETIRAcetam 500 MG TABLET PO SCH ×2 (08:34→20:31)
[2021-09-10] MEDS: RIVAROXABAN 15 MG TABLET. PO SCH (08:35)
[2021-09-10] MEDS: ASCORBIC ACID 500 MG TABLET PO SCH (08:35)
[2021-09-10] MEDS: BACITRACIN TOPICAL OINT PACKET. TP SCH ×2 (08:35→20:31)
[2021-09-10] MEDS: traMADol 50 MG TABLET PO PRN ×2 (10:04→22:48)
[2021-09-10 11:00] VITALS: BP 131/74
[2021-09-10] MEDS: ACETAMINOPHEN 325 MG TABLET. PO PRN ×2 (12:06→16:21)
[2021-09-10 15:00] VITALS: BP 135/78
[2021-09-10 19:00] VITALS: BP 124/70
[2021-09-10 23:00] VITALS: BP 102/59
[2021-09-11 03:00] VITALS: BP 90/56
[2021-09-11] MEDS: ACETAMINOPHEN 325 MG TABLET. PO PRN ×2 (04:48→11:37)
[2021-09-11 07:15] VITALS: BP 141/89
[2021-09-11] MEDS: IPRATRPIUM/ALBUTEROL 0.5/2.5MG 3 ML NEBU. NEB SCH ×3 (07:46→21:00)
[2021-09-11] MEDS: carBAMazepine 200 MG TABLET PO SCH ×2 (08:55→21:56)
[2021-09-11] MEDS: MULTIVITAMIN with MINERAL TABLET. PO SCH (08:55)
[2021-09-11] MEDS: ASCORBIC ACID 500 MG TABLET PO SCH (08:55)
[2021-09-11] MEDS: levETIRAcetam 500 MG TABLET PO SCH ×2 (08:56→21:43)
[2021-09-11] MEDS: RIVAROXABAN 15 MG TABLET. PO SCH (08:56)
[2021-09-11] MEDS: BACITRACIN TOPICAL OINT PACKET. TP SCH ×2 (08:56→21:44)
--- NOTE | 2021-09-11 10:32 | PDOC ---
Provider Note Date of Service: DATE: 09/11/21 TIME: 10:31 Provider Note status same, R knee looks ok, placement pending Justifications for Admission Other Justification MAI LYON MD Sep 11, 2021 10:32
[2021-09-11 11:00] VITALS: BP 138/79
[2021-09-11 14:58] VITALS: BP 146/74
[2021-09-11 19:00] VITALS: BP 152/74
[2021-09-11] MEDS: traMADol 50 MG TABLET PO PRN (21:45)
[2021-09-12 07:00] VITALS: BP 139/80
[2021-09-12] MEDS: BACITRACIN TOPICAL OINT PACKET. TP SCH ×2 (08:44→21:26)
[2021-09-12] MEDS: carBAMazepine 200 MG TABLET PO SCH ×2 (08:44→21:26)
[2021-09-12] MEDS: levETIRAcetam 500 MG TABLET PO SCH ×2 (08:44→21:26)
[2021-09-12] MEDS: RIVAROXABAN 15 MG TABLET. PO SCH (08:44)
[2021-09-12] MEDS: ASCORBIC ACID 500 MG TABLET PO SCH (08:46)
[2021-09-12] MEDS: MULTIVITAMIN with MINERAL TABLET. PO SCH (08:46)
[2021-09-12] MEDS: IPRATRPIUM/ALBUTEROL 0.5/2.5MG 3 ML NEBU. NEB SCH ×3 (09:00→21:00)
--- NOTE | 2021-09-12 09:46 | PDOC ---
Provider Note Date of Service: DATE: 09/12/21 TIME: 09:45 Provider Note status same, placment Justifications for Admission Other Justification MAI LYON MD Sep 12, 2021 09:46
[2021-09-12 10:53] VITALS: BP 144/67
[2021-09-12] MEDS: traMADol 50 MG TABLET PO PRN ×2 (11:16→21:29)
[2021-09-12 15:00] VITALS: BP 151/87
[2021-09-12 19:00] VITALS: BP 121/65
[2021-09-12 23:00] VITALS: BP 126/68
[2021-09-13 07:00] VITALS: BP 141/72
[2021-09-13] MEDS: carBAMazepine 200 MG TABLET PO SCH ×2 (08:23→21:32)
[2021-09-13] MEDS: BACITRACIN TOPICAL OINT PACKET. TP SCH ×2 (08:23→21:32)
[2021-09-13] MEDS: MULTIVITAMIN with MINERAL TABLET. PO SCH (08:23)
[2021-09-13] MEDS: ASCORBIC ACID 500 MG TABLET PO SCH (08:23)
[2021-09-13] MEDS: RIVAROXABAN 15 MG TABLET. PO SCH (08:23)
[2021-09-13] MEDS: levETIRAcetam 500 MG TABLET PO SCH ×2 (08:24→21:32)
[2021-09-13] MEDS: traMADol 50 MG TABLET PO PRN ×2 (09:18→21:33)
[2021-09-13 11:00] VITALS: BP 141/77
[2021-09-13] MEDS: IPRATRPIUM/ALBUTEROL 0.5/2.5MG 3 ML NEBU. NEB SCH ×3 (11:21→21:04)
[2021-09-13 15:00] VITALS: BP 149/62
--- NOTE | 2021-09-13 15:21 | NUR ---
Wound/Ostomy Care Wound Type/Assessment: Patient seen per wound care follow up. See wound assessment. Patient had a stage II PU to left buttock, wound is now healed. Patient has abrasion to left right knee that is now open and has scant amount of creamy drainage. Wound cleansed, assessed, measured, and pictured. Treatment Recommendations/Plan: Recommendations for xeroform gauze and cover with foam dressing. Change on and Monday. Wound care will follow up on 09/22/21. Dressing applied no other wounds noted. Education provided: Patient educated on POC and dressing changes. Offloading surface/device: Bilateral heels floated using pillows. Recommended Referrals/Tests: N/A Discharge Recommendations for dressings: Dressing change instructions left in room. Bed lowered and call light in reach and bed alarm in place. Wound care will follow up on 09/22/21.
[2021-09-13] MEDS: ACETAMINOPHEN 325 MG TABLET. PO PRN (17:27)
[2021-09-13 19:00] VITALS: BP 147/69
[2021-09-14 03:00] VITALS: BP 138/66
[2021-09-14] MEDS: ACETAMINOPHEN 325 MG TABLET. PO PRN (03:44)
[2021-09-14 07:15] VITALS: BP 140/79
[2021-09-14] MEDS: IPRATRPIUM/ALBUTEROL 0.5/2.5MG 3 ML NEBU. NEB SCH ×3 (07:26→20:21)
[2021-09-14] MEDS: BACITRACIN TOPICAL OINT PACKET. TP SCH ×2 (08:28→20:38)
[2021-09-14] MEDS: MULTIVITAMIN with MINERAL TABLET. PO SCH (08:28)
[2021-09-14] MEDS: RIVAROXABAN 15 MG TABLET. PO SCH (08:28)
[2021-09-14] MEDS: carBAMazepine 200 MG TABLET PO SCH ×2 (08:28→20:38)
[2021-09-14] MEDS: ASCORBIC ACID 500 MG TABLET PO SCH (08:28)
[2021-09-14] MEDS: levETIRAcetam 500 MG TABLET PO SCH ×2 (08:28→20:38)
[2021-09-14] MEDS: ALPRAZolam 0.25 MG TABLET PO PRN ×2 (09:28→20:38)
[2021-09-14 11:09] VITALS: BP 139/67
--- NOTE | 2021-09-14 11:45 | NUR ---
jennifer Zuleta/hadley party planner attempted to contact pt's granddaughter Lavern re: d/c home today with HH. No answer, voicemail left.
[2021-09-14] MEDS: traMADol 50 MG TABLET PO PRN (14:15)
[2021-09-14 15:15] VITALS: BP 150/81
--- NOTE | 2021-09-14 17:18 | NUR ---
Dr. Walsh paged re: pt. c/o cough and asking for meds. Also to be notified of d/c environmental planner unable to get ahold of family to have pt discharged.
--- NOTE | 2021-09-14 17:33 | NUR ---
Dr. Walsh returned call, telephone orders received.
[2021-09-14] MEDS ORDERED: guaiFENesin DM 200MG/20MG 10 ML SYRUP PO PRN (17:45)
[2021-09-14 19:15] VITALS: BP 153/91
[2021-09-14 23:14] VITALS: BP 145/79
[2021-09-15 03:09] VITALS: BP 126/66
[2021-09-15] MEDS: traMADol 50 MG TABLET PO PRN (04:29)
[2021-09-15] MEDS: IPRATRPIUM/ALBUTEROL 0.5/2.5MG 3 ML NEBU. NEB SCH (07:25)
[2021-09-15 07:30] VITALS: BP 160/69
--- NOTE | 2021-09-15 08:35 | PDOC ---
Provider Note Date of Service: DATE: 09/15/21 TIME: 08:34 Provider Note status same, call to [facility] re skillled need went as expected- same care, Justifications for Admission Other Justification MAI LYON MD Sep 15, 2021 08:35
[2021-09-15] MEDS: MULTIVITAMIN with MINERAL TABLET. PO SCH (08:45)
[2021-09-15] MEDS: RIVAROXABAN 15 MG TABLET. PO SCH (08:45)
[2021-09-15] MEDS: BACITRACIN TOPICAL OINT PACKET. TP SCH (08:45)
[2021-09-15] MEDS: levETIRAcetam 500 MG TABLET PO SCH (08:45)
[2021-09-15] MEDS: ASCORBIC ACID 500 MG TABLET PO SCH (08:45)
[2021-09-15] MEDS: carBAMazepine 200 MG TABLET PO SCH (08:45)
[2021-09-15 11:00] VITALS: BP 158/71
--- NOTE | 2021-09-15 11:04 | NUR ---
PT. discharged to home via EMS, verbalized understanding of discharge instructions.
== END 2021-09-15 11:00 | disposition home health service (06) | DRG 948 ==
LOC: ER 11:51 → ED HOLD 15:00 → 4 NORTH 19:00
PROVIDERS: ADMIT Family Medicine; ATTEND Family Medicine
DX: R53.1 Weakness (principal); Z68.41 Body mass index [BMI] 40.0-44.9, adult; J96.10 Chronic respiratory failure, unspecified whether with hypoxia or hypercapnia; I48.91 Unspecified atrial fibrillation; J44.9 Chronic obstructive pulmonary disease, unspecified; Z99.81 Dependence on supplemental oxygen; Z74.1 Need for assistance with personal care; G25.81 Restless legs syndrome; I11.0 Hypertensive heart disease with heart failure; E66.9 Obesity, unspecified; I50.9 Heart failure, unspecified; M19.90 Unspecified osteoarthritis, unspecified site; W01.0XXA Fall on same level from slipping, tripping and stumbling without subsequent striking against object, initial encounter; Z20.822 Contact with and (suspected) exposure to COVID-19; Z85.42 Personal history of malignant neoplasm of other parts of uterus; Z86.73 Personal history of transient ischemic attack (TIA), and cerebral infarction without residual deficits; Z87.891 Personal history of nicotine dependence; Z90.710 Acquired absence of both cervix and uterus; Z99.3 Dependence on wheelchair; Z88.0 Allergy status to penicillin; Z88.2 Allergy status to sulfonamides; Y93.89 Activity, other specified; Y92.89 Other specified places as the place of occurrence of the external cause; Y99.8 Other external cause status
CPT/HCPCS: 36415; 73562; 73590; 80053; 85025; 94640; 94760; 96374; J2405; J3010; U0003; 97110-GP; 97530-GO; 97530-GP; 97535-GO; 99285-25; G0378

== ENCOUNTER 2021-09-20 18:32 | Inpatient (IN) | payer MEDICARE ==
[~2021-09-20] VITALS: Ht 162.6 cm; Wt 85.9 kg
[~2021-09-20 18:32] MED LIST changes: +RIVA15TA PO
--- NOTE | 2021-09-20 18:52 | EKG ---
[facility] [address] [place] [address] Test Date: 2021-09-20 Test Time: 18:45:56 Pat Name: NISREEN MONTES DE OCA Department: Room: Gender: F Media Relations Manager: : 1940 Requested By: SUSU FOSTER Order Number: [id number] Reading MD: Mike Marrufo Measurements Intervals [place] Rate: 105 P: HI: QRS: 39 QRSD: 86 T: 48 QT: 330 QTc: 440 Interpretive Statements ATRIAL FIBRILLATION WITH RVR Electronically Signed On 09-24-2021 13:47:56 CDT by Mike Marrufo
[2021-09-20 19:08] LABS: BASO % 1 % (0-3); EOS # 0.1 x10^3/uL (0.0-0.7); EOS % 2 % (0-3); HEMATOCRIT 37.3 % (36.0-47.0); HEMOGLOBIN 12.4 g/dL (12.0-15.5); LYMPH # 1.9 x10^3/uL (1.0-4.8); LYMPH % 25 % (24-48); MEAN CORPUSCULAR HEMOGLOBIN 30 pg (25-35); MEAN CORPUSCULAR HGB CONC 33 g/dL (31-37); MEAN CORPUSCULAR VOLUME 90 fL (79-100); MONO # 0.5 x10^3/uL (0.0-1.1); MONO % 6 % (0-9); NEUT % 67 % (31-73); PLATELET COUNT 246 x10^3/uL (140-400); RED BLOOD COUNT 4.15 x10^6/uL (3.50-5.40); RED CELL DISTRIBUTION WIDTH 17.4 % (11.5-14.5); WHITE BLOOD COUNT 7.6 x10^3/uL (4.0-11.0)
--- NOTE | 2021-09-20 19:18 | PHYS DOC ---
Past Medical History Past Medical History: CHF, COPD, Hypertension Additional Past Medical Histor: Restless leg syndrome, STROKE >5YRS, UTERINE CANCER Past Surgical History: Hysterectomy Smoking Status: Never Smoker Alcohol Use: None Drug Use: None Adult General Chief Complaint Chief Complaint: SHORTNESS OF BREATH [facility] HPI The patient is an 80-year-old female who resides at home with her daughter in the community and has a history of hypertension, hyperlipidemia, newly diagnosed paroxysmal atrial fibrillation on Xarelto (unclear if on a rate-control medication at home; oral Cardizem was mentioned in cardiology notes but I do not see that the patient has a prescription for it on file), probable diastolic heart failure, COPD with chronic respiratory failure on 3 L at baseline, apparent seizure disorder on daily Keppra and carbamazepine, history of cerebrovascular accident in the past. Ms. Cotton presents for evaluation of shortness of breath. Apparently she has been out of at least some of her home medications for a couple of days and daughter was concerned that she was not doing well without her medicines and wanted her to be medically evaluated. Patient herself has no specific complaints but is a poor historian. She does deny pain anywhere when I ask her. She was incontinent of urine and stool on arrival and EMS voiced concerns about her home environment, stating that it was filthy. Patient moves all extremities equally, is saturating appropriately on her typical 3 L of home oxygen and vital signs are notable only for slightly rapid heart rate with rhythm on the monitor appearing to be atrial fibrillation. She is in no acute distress. Review of Systems Review of Systems A 12 point review of systems was completed and was negative except as noted in HPI above. Current Medications Current Medications Current Medications Medications (Trade) Dose Ordered Sig/Silke Start Time Stop Time Status Last Admin Dose Admin Diltiazem HCl (Cardizem Iv Push) 10 mg 1X ONCE 09/20/21 19:00 09/20/21 19:01 DC 09/20/21 19:31 10 MG Furosemide (Lasix) 20 mg 1X ONCE 09/20/21 20:00 09/20/21 20:01 DC 09/20/21 20:37 20 MG Allergies Allergies Allergies Coded Allergies Type Severity Reaction Last Updated Verified Penicillins Allergy Intermediate 09/20/21 Yes Sulfa (Sulfonamide Antibiotics) Allergy Intermediate 09/20/21 Yes Physical Exam Physical Exam 80-year-old female appearing nontoxic and in no acute distress. Head is normocephalic and atraumatic. Neck is supple and nontender. Oropharynx is moist. Lungs are clear to auscultation at all stations. There is a normal S1 and S2 without rubs or gallops and capillary refill is appropriate, less than 2 seconds globally. There is a tachycardic, irregular rhythm. Abdomen is soft, nontender and nondistended. Examination of the groin, the decubitus area and the back reveals no skin breakdown, erythema, warmth, swelling or tenderness. Skin is warm and dry without cyanosis, clubbing or edema. Psychiatrically, the patient demonstrates appropriate mood and affect and is alert. Neurologically, patient moves all extremities equally, is alert to self and situation but not to date, and no lateralizing deficits are seen. Evaluation of the extremities reveals BUEs and BLEs neurovascularly intact distally with strength out of 5, sensation intact light touch in all nerve distributions, radial, DP and PT pulses 2+ and equal bilaterally, capillary refill less than 2 seconds, hands and feet warm and well-perfused. No dependent peripheral edema distally. No calf tenderness or swelling bilaterally. Homans test is negative bilaterally. Current Patient Data Vital Signs Vital Signs Date Time Temp Pulse Resp B/P (MAP) Pulse Ox O2 Delivery O2 Flow Rate FiO2 09/20/21 19:31 115 155/80 09/20/21 19:10 22 100 Room Air 09/20/21 18:32 98.5 98.5 Lab Values Laboratory Tests Test 09/20/21 18:50 09/20/21 18:55 White Blood Count 7.6 x10^3/uL (4.0-11.0) Red Blood Count 4.15 x10^6/uL (3.50-5.40) Hemoglobin 12.4 g/dL (12.0-15.5) Hematocrit 37.3 % (36.0-47.0) Mean Corpuscular Volume 90 fL (79-100) Mean Corpuscular Hemoglobin 30 pg (25-35) Mean Corpuscular Hemoglobin Concent 33 g/dL (31-37) Red Cell Distribution Width 17.4 % (11.5-14.5) H Platelet Count 246 x10^3/uL (140-400) Neutrophils (%) (Auto) 67 % (31-73) Lymphocytes (%) (Auto) 25 % (24-48) Monocytes (%) (Auto) 6 % (0-9) Eosinophils (%) (Auto) 2 % (0-3) Basophils (%) (Auto) 1 % (0-3) Neutrophils # (Auto) 5.0 x10^3/uL (1.8-7.7) Lymphocytes # (Auto) 1.9 x10^3/uL (1.0-4.8) Monocytes # (Auto) 0.5 x10^3/uL (0.0-1.1) Eosinophils # (Auto) 0.1 x10^3/uL (0.0-0.7) Basophils # (Auto) 0.0 x10^3/uL (0.0-0.2) Prothrombin Time 13.8 SEC (11.7-14.0) Prothrombin Time INR 1.1 (0.8-1.1) Activated Partial Thromboplast Time 33 SEC (24-38) Sodium Level 129 mmol/L (136-145) L Potassium Level 4.1 mmol/L (3.5-5.1) Chloride Level 92 mmol/L (98-107) L Carbon Dioxide Level 35 mmol/L (21-32) H Anion Gap 2 (6-14) L Blood Urea Nitrogen 14 mg/dL (7-20) Creatinine 0.6 mg/dL (0.6-1.0) Estimated GFR (Cockcroft-Gault) 95.9 BUN/Creatinine Ratio 23 (6-20) H Glucose Level 118 mg/dL (70-99) H Calcium Level 8.4 mg/dL (8.5-10.1) L Total Bilirubin 0.5 mg/dL (0.2-1.0) Aspartate Amino Transferase (AST) 17 U/L (15-37) Alanine Aminotransferase (ALT) 16 U/L (14-59) Alkaline Phosphatase 70 U/L (46-116) Troponin I High Sensitivity 10 ng/L (4-50) EJ-Zpp-T-Type Natriuretic Peptide 2042 pg/mL (0-449) H Total Protein 6.6 g/dL (6.4-8.2) Albumin 2.7 g/dL (3.4-5.0) L Albumin/Globulin Ratio 0.7 (1.0-1.7) L Procalcitonin < 0.10 ng/mL (0.00-0.10) Influenza Type A Antigen Negative (NEGATIVE) Influenza Type B Antigen Negative (NEGATIVE) SARS-CoV-2 Antigen (Rapid) Negative (NEGATIVE) Laboratory Tests 09/20/21 18:50 Laboratory Tests 09/20/21 18:50 EKG EKG Atrial fibrillation with rapid ventricular response, rate 105, no acute ST elevation or depression, EP interpretation Radiology/Procedures Radiology/Procedures AP chest. HISTORY: Short of air AP view was taken of the chest. The heart is enlarged. Patient's taken a poor inspiration. There is mild hazy basilar atelectasis or infiltrates. There has been an improvement compared to the study of August 11. IMPRESSION: 1. Cardiomegaly. 2. Poor inspiration with basilar atelectasis or infiltrates. Electronically signed by: Kwabena Swain MD (09/20/2021 8:04 PM) [facility] DICTATED and SIGNED BY: KWABENA SWAIN MD DATE: 09/20/212002 Course & Med Decision Making Course & Med Decision Making Generally well-appearing 80-year-old female presenting for reported shortness of breath, although she does not objectively appear to be short of breath and is saturating normally on her typical 3 L of home oxygen. She has been without her medicines for a few days and EMS voiced concerns about her filthy home environment. Checking cardiorespiratory labs and urine as noted and will give a small push dose of Cardizem and will then reevaluate. Anticipate the need for admission, at a minimum, for web content & social media manager / case management evaluation and stabilization on an oral rate control medication for A. fib. Update: Patient resting comfortably in no acute distress on serial reassessments. Cardizem push dose was initially effective but rate went back up. Patient on a Cardizem drip for now. Have given a small dose of IV Lasix. Will bring in for further care under Dr. Lyon, who graciously accepts. Critical care time was 39 minutes for atrial fibrillation with rapid ventricular response. Dragon Disclaimer Dragon Disclaimer This electronic medical record was generated, in whole or in part, using a voice recognition dictation system. Departure Departure Impression: Primary Impression: Atrial fibrillation with rapid ventricular response Additional Impression: Acute exacerbation of CHF (congestive heart failure) Disposition: ADMITTED INPATIENT Condition: STABLE Referrals: MAI LYON MD (PCP) Problem Qualifiers Additional Impression: Acute exacerbation of CHF (congestive heart failure) Heart failure type: diastolic Qualified Codes: I50.33 - Acute on chronic diastolic (congestive) heart failure SUSU FOSTER MD Sep 20, 2021 19:18
[2021-09-20 19:20] LABS: CALCIUM 8.4 mg/dL (8.5-10.1); CREATININE 0.6 mg/dL (0.6-1.0); GFR 95.9; POTASSIUM 4.1 mmol/L (3.5-5.1); PROTHROMBIN TIME PATIENT 13.8 SEC (11.7-14.0)
[2021-09-20 19:27] LABS: ALBUMIN 2.7 g/dL (3.4-5.0); ALBUMIN/GLOBULIN RATIO 0.7 (1.0-1.7); TOTAL BILIRUBIN 0.5 mg/dL (0.2-1.0); TOTAL PROTEIN 6.6 g/dL (6.4-8.2)
[2021-09-20 19:39] LABS: INFLUENZA A PATIENT NEGATIVE (NEGATIVE); INFLUENZA B PATIENT NEGATIVE (NEGATIVE)
[2021-09-20] MEDS ORDERED: FUROSEMIDE 20 MG/2 ML VIAL. IVP ONE (20:00)
--- NOTE | 2021-09-20 20:07 | RAD ---
AP chest. HISTORY: Short of air AP view was taken of the chest. The heart is enlarged. Patient's taken a poor inspiration. There is m ild hazy basilar atelectasis or infiltrates. There has been an improvement compared to the study of M arch 2. IMPRESSION: 1. Cardiomegaly. 2. Poor inspiration with basilar atelectasis or infiltrates. Electronically signed by: Kwabena Swain MD (09/20/2021 8:04 PM) [facility]
[2021-09-20] MEDS: dilTIAZem HCL 125 MG in IV DEXTROSE 5% 100ML 100 ML IV PRN ×2 (21:51→22:57)
[2021-09-20] MEDS ORDERED: ONDANSETRON PF 4 MG/2 ML VIAL. IVP PRN (22:15)
[2021-09-20] MEDS ORDERED: ACETAMINOPHEN 325 MG TABLET. PO PRN (22:15)
[2021-09-20 22:30] VITALS: BP 142/80
--- NOTE | 2021-09-20 22:36 | NUR ---
The patient, NISREEN MONTES DE OCA, 80 y/o, F admitted by MAI LYON MD, was given written information regarding hospital policies, unit procedures and contact persons. Valuables were checked and documented in the [facility]ar lcrn.
[2021-09-21] VITALS (7 sets, daily range): BP systolic 83–125; BP diastolic 34–83
[2021-09-21 01:24] LABS: BASO # 0.1 x10^3/uL (0.0-0.2); BASO % 1 % (0-3); EOS # 0.1 x10^3/uL (0.0-0.7); EOS % 1 % (0-3); HEMATOCRIT 35.6 % (36.0-47.0); HEMOGLOBIN 11.9 g/dL (12.0-15.5); LYMPH # 1.9 x10^3/uL (1.0-4.8); LYMPH % 23 % (24-48); MEAN CORPUSCULAR HEMOGLOBIN 30 pg (25-35); MEAN CORPUSCULAR HGB CONC 33 g/dL (31-37); MEAN CORPUSCULAR VOLUME 90 fL (79-100); MONO # 0.6 x10^3/uL (0.0-1.1); MONO % 7 % (0-9); NEUT # 5.8 x10^3/uL (1.8-7.7); NEUT % 68 % (31-73); PLATELET COUNT 237 x10^3/uL (140-400); RED BLOOD COUNT 3.98 x10^6/uL (3.50-5.40); RED CELL DISTRIBUTION WIDTH 17.5 % (11.5-14.5); WHITE BLOOD COUNT 8.4 x10^3/uL (4.0-11.0)
[2021-09-21 01:42] LABS: BLOOD UREA NITROGEN 12 mg/dL (7-20); CALCIUM 8.2 mg/dL (8.5-10.1); CARBON DIOXIDE 40 mmol/L (21-32); CHLORIDE 92 mmol/L (98-107); CREATININE 0.6 mg/dL (0.6-1.0); GFR 95.9; GLUCOSE 144 mg/dL (70-99); POTASSIUM 3.8 mmol/L (3.5-5.1); SODIUM 132 mmol/L (136-145)
--- NOTE | 2021-09-21 06:42 | NUR ---
WOUND ON LEFT BUTTUCKS, YEAST LOOKING REDDNES IN RIGHT GROIN. BOGGY HEELS LCRN
--- NOTE | 2021-09-21 06:45 | NUR ---
CARDIZEM DRIP VITALS IN THE CHART. LCRN
--- NOTE | 2021-09-21 08:32 | PDOC ---
Provider Note Date of Service: DATE: 09/21/21 TIME: 08:32 Provider Note DICTATED Justifications for Admission Other Justification MAI LYON MD Sep 21, 2021 08:32
[2021-09-21] MEDS: hydroCHLOROthiazide 25 MG TABLET PO SCH ×2 (09:00→13:05)
[2021-09-21] MEDS: LISINOPRIL 20 MG TABLET PO SCH ×2 (09:00→13:05)
[2021-09-21] MEDS ORDERED: ASPIRIN 325 MG TABLET PO SCH ×2 (09:00)
--- NOTE | 2021-09-21 09:10 | PDOC2 ---
ZAIRA CHI YEAST SUPERVISOR 09/21/21 0909: CARDIAC CONSULT DATE OF CONSULT Date of Consult DATE: 09/21/21 TIME: 09:03 REASON FOR CONSULT Reason for Consult: AFIB with RVR, CHF REFERRING PHYSICIAN Referring Physician: Dr. Silveira SOURCE Source: Chart review, Patient HISTORY OF PRESENT ILLNESS HISTORY OF PRESENT ILLNESS This is an 80 yo female who presented secondary to shortness of breath, weakness, failure to thrive. Has been out of medications for several days. Was noted in AFIB with RVR upon arrival, which prompted this consult. She denies any chest pain, palpitations, dizziness, diaphoresis, or shortness of breath. PAST MEDICAL HISTORY Past Medical History Cardiovascular: CHF, HTN, AFIB Pulmonary: COPD CENTRAL NERVOUS SYSTEM: CVA GI: GERD Heme/Onc: Cancer (uterine ) Psych: Anxiety Musculoskeletal: Osteoarthritis PAST SURGICAL HISTORY Past Surgical History: Hysterectomy FAMILY HISTORY Family History: Hypertension SOCIAL HISTORY Social History Smoke: Quit ALCOHOL: none Drugs: None Lives: with Family CURRENT MEDICATIONS CURRENT MEDICATIONS Current Medications Medications (Trade) Dose Ordered Sig/Silke Route PRN Reason Start Time Stop Time Status Last Admin Dose Admin Diltiazem HCl (Cardizem Iv Push) 10 mg 1X ONCE IVP 09/20/21 19:00 09/20/21 19:01 DC 09/20/21 19:31 Furosemide (Lasix) 20 mg 1X ONCE IVP 09/20/21 20:00 09/20/21 20:01 DC 09/20/21 20:37 Diltiazem HCl 125 mg/Dextrose 125 ml @ 7.5 mls/hr CONT PRN PRN IV PER PROTOCOL 09/20/21 22:00 09/21/21 08:31 DC 09/20/21 22:57 ALLERGIES ALLERGIES: Coded Allergies: Penicillins (Verified Allergy, Intermediate, 09/20/21) Sulfa (Sulfonamide Antibiotics) (Verified Allergy, Intermediate, 09/20/21) ROS Review of System 14 point ROS conducted with pertinent positives noted above in HPI PHYSICAL EXAM PHYSICAL EXAM General: Alert, Oriented X3, Cooperative, No acute distress HEENT: Atraumatic, Mucous membr. moist/pink Lungs: Other (diminished bases) Heart: Other (AFIB, rate controlled ) Abdomen: Soft Extremities: Other (trace bilateral pedal edema ) Skin: No significant lesion Neuro: Sensation intact Psych/Mental Status: Mental status NL, Mood NL MUSCULOSKELETAL: Osteoarthritic changes both hands VITALS/I&O VITALS/I&O: Vital Signs Date Time Temp Pulse Resp B/P (MAP) Pulse Ox O2 Delivery O2 Flow Rate FiO2 09/21/21 07:00 98.1 79 17 100/37 (58) 98 Nasal Cannula 3.0 98.1 I & O 09/20/21 09/20/21 09/21/21 15:00 23:00 07:00 Intake Total 0 ml Output Total 800 ml Balance -800 ml LABS Lab: Laboratory Tests Test 09/20/21 18:50 09/20/21 18:55 09/20/21 23:00 09/21/21 01:10 White Blood Count 7.6 x10^3/uL (4.0-11.0) 8.4 x10^3/uL (4.0-11.0) Red Blood Count 4.15 x10^6/uL (3.50-5.40) 3.98 x10^6/uL (3.50-5.40) Hemoglobin 12.4 g/dL (12.0-15.5) 11.9 g/dL (12.0-15.5) L Hematocrit 37.3 % (36.0-47.0) 35.6 % (36.0-47.0) L Mean Corpuscular Volume 90 fL (79-100) 90 fL (79-100) Mean Corpuscular Hemoglobin 30 pg (25-35) 30 pg (25-35) Mean Corpuscular Hemoglobin Concent 33 g/dL (31-37) 33 g/dL (31-37) Red Cell Distribution Width 17.4 % (11.5-14.5) H 17.5 % (11.5-14.5) H Platelet Count 246 x10^3/uL (140-400) 237 x10^3/uL (140-400) Neutrophils (%) (Auto) 67 % (31-73) 68 % (31-73) Lymphocytes (%) (Auto) 25 % (24-48) 23 % (24-48) L Monocytes (%) (Auto) 6 % (0-9) 7 % (0-9) Eosinophils (%) (Auto) 2 % (0-3) 1 % (0-3) Basophils (%) (Auto) 1 % (0-3) 1 % (0-3) Neutrophils # (Auto) 5.0 x10^3/uL (1.8-7.7) 5.8 x10^3/uL (1.8-7.7) Lymphocytes # (Auto) 1.9 x10^3/uL (1.0-4.8) 1.9 x10^3/uL (1.0-4.8) Monocytes # (Auto) 0.5 x10^3/uL (0.0-1.1) 0.6 x10^3/uL (0.0-1.1) Eosinophils # (Auto) 0.1 x10^3/uL (0.0-0.7) 0.1 x10^3/uL (0.0-0.7) Basophils # (Auto) 0.0 x10^3/uL (0.0-0.2) 0.1 x10^3/uL (0.0-0.2) Prothrombin Time 13.8 SEC (11.7-14.0) Prothrombin Time INR 1.1 (0.8-1.1) Activated Partial Thromboplast Time 33 SEC (24-38) Sodium Level 129 mmol/L (136-145) L 132 mmol/L (136-145) L Potassium Level 4.1 mmol/L (3.5-5.1) 3.8 mmol/L (3.5-5.1) Chloride Level 92 mmol/L (98-107) L 92 mmol/L (98-107) L Carbon Dioxide Level 35 mmol/L (21-32) H 40 mmol/L (21-32) H Anion Gap 2 (6-14) L (6-14) Blood Urea Nitrogen 14 mg/dL (7-20) 12 mg/dL (7-20) Creatinine 0.6 mg/dL (0.6-1.0) 0.6 mg/dL (0.6-1.0) Estimated GFR (Cockcroft-Gault) 95.9 95.9 BUN/Creatinine Ratio 23 (6-20) H Glucose Level 118 mg/dL (70-99) H 144 mg/dL (70-99) H Calcium Level 8.4 mg/dL (8.5-10.1) L 8.2 mg/dL (8.5-10.1) L Total Bilirubin 0.5 mg/dL (0.2-1.0) Aspartate Amino Transferase (AST) 17 U/L (15-37) Alanine Aminotransferase (ALT) 16 U/L (14-59) Alkaline Phosphatase 70 U/L (46-116) Troponin I High Sensitivity 10 ng/L (4-50) 9 ng/L (4-50) 11 ng/L (4-50) LB-Tqv-N-Type Natriuretic Peptide 2042 pg/mL (0-449) H Total Protein 6.6 g/dL (6.4-8.2) Albumin 2.7 g/dL (3.4-5.0) L Albumin/Globulin Ratio 0.7 (1.0-1.7) L Procalcitonin < 0.10 ng/mL (0.00-0.10) Influenza Type A Antigen Negative (NEGATIVE) Influenza Type B Antigen Negative (NEGATIVE) SARS-CoV-2 Antigen (Rapid) Negative (NEGATIVE) Laboratory Tests 09/20/21 18:50 09/21/21 01:10 Laboratory Tests 09/20/21 18:50 09/21/21 01:10 ECHOCARDIOGRAM ECHOCARDIOGRAM <Conclusion> The left ventricular systolic function is normal and the ejection fraction is within normal range. Estimated ejection fraction 65%. There is grossly normal LV segmental wall motion. Septal mostion suggestive of prior sternotomy. Doppler and Color Flow revealed mild tricuspid regurgitation. Estimated PAP 45- 50 mmHg. DATE: 08/16/21 [id number] ASSESSMENT/PLAN ASSESSMENT/PLAN 1. Weakness, FTT 2. Acute on chronic respiratory failure 3. Mid acute on chronic diastolic CHF; improved s/p IV diuresis. Recent echo with preserved LV systolic function 4. PAFIB presenting with RVR; rate now controlled. Has been out of meds. On Xarelto for stroke prophylaxis 5. Hypertension; now controlled 6. Hyperlipidemia 7. COPD 8. H/o CVA 9. Hyponatremia Recommendations Continue Cardizem for rate control ASA therapy for now. Probable poor candidate for OAC given weakness, fall risk Plan outpatient ischemic evaluation and cardioversion if patient remains in AFIB Supportive care Follow up in our office with Dr. Marrufo has been arranged KIMBERLEY MARRUFO MD 09/21/212040: CARDIAC CONSULT ASSESSMENT/PLAN ASSESSMENT/PLAN Patient seen and examined. Agree with ROAD REPAIRER's assessment and plan. Ac on chr diast HF better compensated Atrial fib rate better controlled Consider outpatient cardioversion and ischemic evaluation. Continue xarelto for stroke prophylaxis Thank you for your consultation ZAIRA CHI APRN Sep 21, 2021 09:09 KIMBERLEY MARRUFO MD Sep 21, 2021 20:41
[2021-09-21] MEDS: traMADol 50 MG TABLET PO SCH ×2 (09:16→21:00)
[2021-09-21] MEDS: levETIRAcetam 500 MG TABLET PO SCH ×2 (09:16→21:24)
--- NOTE | 2021-09-21 10:50 | HP ---
DATE OF SERVICE: 09/21/2021 ADMIT DATE: 09/20/2021 CHIEF COMPLAINT: . HISTORY OF PRESENT ILLNESS: An 80-year-old white female with known COPD and recurrent atrial fibrillation, has been recently discharged after insurance company failed to authorize her admission to long-term. As per the patient, she came back in with generalized weakness and family unable to care for her given apparently deplorable home conditions. No specific complaints and she is back on IV diltiazem. ER evaluation was unremarkable. Chest x-ray was clear. Labs were okay. Echo last month showed good ejection fraction, high pulmonary artery pressure consistent with COPD, but no active source of her atrial fibrillation. She is not on anticoagulation as she is deemed to be a high fall risk. FAMILY HISTORY: Unremarkable. SOCIAL HISTORY: Largely unknown apparently because the family situation is relatively chaotic and unsanitary nondrinker and nonsmoker in my knowledge. REVIEW OF SYSTEMS: No other complaints. PHYSICAL EXAMINATION: ENT: All within normal limits. NECK: No masses, nodes or bruits. LUNGS: Decreased breath sounds. No wheezing or tachypnea. CARDIOVASCULAR: Irregular rate consistent with atrial fibrillation. No murmur is heard. ABDOMEN: Obese, benign and nontender. EXTREMITIES: Good radial and pedal pulses. No edema. No joint or skin lesions. NEUROLOGIC: Physiologic, nonfocal. ASSESSMENT: Advanced age, generalized weakness from deconditioning, chronic obstructive pulmonary disease and chronic recurrent atrial fibrillation. PLAN: P.o. diltiazem now, aspirin for CVA prophylaxis and then placement to continue to resume radically declined all insurance to this point now her third admission. TERESITA/BASHIR/[facility] DR: TERESITA/marcelo TID: [id number]
--- NOTE | 2021-09-21 12:15 | NUR ---
SS following for discharge planning. SS reviewed pt chart and discussed with pt RN. Pt is from home and is currently requiring oxygen at three liters nasal canula. COVID19 negative. Cardiology and Wound care consulted. Pt is current on services with [facility], ; fax [phone]. SS will continue to follow for discharge planning.
[2021-09-22 02:30] VITALS: BP 100/58
[2021-09-22 07:00] VITALS: BP 121/58
--- NOTE | 2021-09-22 08:16 | PDOC ---
Provider Note Date of Service: DATE: 09/22/21 TIME: 08:14 Provider Note vss, srill af but slower rate- meds smae , no OAC re fall risk- home status untenable for her , her 3rd admit this month re same Justifications for Admission Other Justification MAI LYON MD Sep 22, 2021 08:16
[2021-09-22] MEDS: traMADol 50 MG TABLET PO SCH ×2 (08:53→21:28)
[2021-09-22] MEDS: ASPIRIN CHEWABLE 81 MG TABLET. PO SCH (08:53)
[2021-09-22] MEDS: hydroCHLOROthiazide 25 MG TABLET PO SCH (08:53)
[2021-09-22] MEDS: LISINOPRIL 20 MG TABLET PO SCH (08:54)
[2021-09-22] MEDS: levETIRAcetam 500 MG TABLET PO SCH ×2 (08:54→21:28)
--- NOTE | 2021-09-22 10:05 | PDOC ---
ZAIRA CHI APRN 09/22/21 1005: CARDIO Progress Notes Date and Time Date of Service 09/22/21 Time of Evaluation 1000 Subjective Subjective: No Chest Pain, No Palpitations, No Dizziness Vitals Vitals Vital Signs Date Time Temp Pulse Resp B/P (MAP) Pulse Ox O2 Delivery O2 Flow Rate FiO2 09/22/21 09:23 98 Nasal Cannula 3.0 09/22/21 08:54 73 121/58 09/22/21 07:00 97.5 17 97.5 Weight Weight [ ] Input and Output Intake and Output Intake and Output 09/22/21 07:00 Intake Total 510 ml Output Total 300 ml Balance 210 ml Intake Oral 510 ml Output Urine Total 300 ml Laboratory Labs Laboratory Tests Test 09/22/21 07:42 Glucose (Fingerstick) 103 mg/dL (70-99) Physical Exam HEENT: Neck Supple W Full Motion Chest: Symmetric LUNGS: Other (diminished bases) Heart: irregularly irregular (AFIB, rate controlled ) Abdomen: Soft N/T, Other (obese) Extremities: No Edema Neurology: alert, follow commands, confused Assessment Assessment 1. Weakness, FTT 2. Acute on chronic respiratory failure 3. Mid acute on chronic diastolic CHF; improved s/p IV diuresis. Recent echo with preserved LV systolic function 4. PAFIB presenting with RVR; rate now controlled. Has been out of meds. 5. Hypertension; now controlled 6. Hyperlipidemia 7. COPD 8. H/o CVA 9. Hyponatremia Recommendations Lasix PRN Continue Cardizem for rate control On ASA therapy. [place] to be poor candidate for OAC given weakness, fall risk Consider outpatient ischemic evaluation Supportive care Follow up in our office with Dr. Marrufo has been arranged Justicifation of Admission Dx: Justifications for Admission: Justification of Admission Dx: Yes CHF: Cardiac Arrhythmias KIMBERLEY MARRUFO MD 09/22/21 2141: CARDIO Progress Notes Assessment Assessment Patient seen and examined. Agree with CHEMICAL OPERATOR's assessment and plan. Ac on chr diast HF better compensated Atrial fib rate better controlled She is poor candidate for ad terminal makeup operator anticoagulation Consider outpatient ischemic evaluation ZAIRA CHI APRN Sep 22, 2021 10:05 KIMBERLEY MARRUFO MD Sep 22, 2021 21:41
[2021-09-22 11:00] VITALS: BP 118/59
[2021-09-22 15:00] VITALS: BP 108/72
--- NOTE | 2021-09-22 15:47 | NUR ---
SS following up with discharge planning. SS reviewed pt chart and discussed with pt RN. Pt is currently requiring oxygen at two liters nasal canula. Cardiology and wound care following. PT/OT recommended alf unit. SS spoke with pt's family about discharge planning and alf unit. Pt's family agreeable and requested referral to [facility], ; fax [phone]. Referral sent as requested. COVID19 PCR requested for placement. SS will continue to follow for discharge planning.
--- NOTE | 2021-09-22 16:52 | NUR ---
Wound Care WCRN consult for buttock wound. Pt does not have any open wounds at this time. Barrier cream applied, pt turned to left and heels floated. WC will sign off at this time. Please reconsult if new wounds develop
[2021-09-22 19:00] VITALS: BP 107/50
[2021-09-22 23:00] VITALS: BP 138/56
[2021-09-23 02:55] VITALS: BP 129/77
[2021-09-23 07:00] VITALS: BP 124/54
--- NOTE | 2021-09-23 08:37 | PDOC ---
Provider Note Date of Service: DATE: 09/23/21 TIME: 08:33 Provider Note stable , rate controlled AF, meds same , snf placement needed as b4 but refused x 2 prior per insurance- poor aoc candidate re fall risk Justifications for Admission Other Justification MAI LYON MD Sep 23, 2021 08:37
[2021-09-23] MEDS: levETIRAcetam 500 MG TABLET PO SCH ×2 (08:56→20:31)
[2021-09-23] MEDS: hydroCHLOROthiazide 25 MG TABLET PO SCH (08:56)
[2021-09-23] MEDS: ASPIRIN CHEWABLE 81 MG TABLET. PO SCH (08:57)
[2021-09-23] MEDS: traMADol 50 MG TABLET PO SCH ×2 (08:57→20:31)
[2021-09-23] MEDS: LISINOPRIL 20 MG TABLET PO SCH (08:58)
--- NOTE | 2021-09-23 09:19 | PDOC ---
ZAIRA CHI APRN 09/23/21 0919: CARDIO Progress Notes Date and Time Date of Service 09/23/21 Time of Evaluation 0920 Subjective Subjective: No Chest Pain, No shortness of breath, No Palpitations, No Dizziness Vitals Vitals Vital Signs Date Time Temp Pulse Resp B/P (MAP) Pulse Ox O2 Delivery O2 Flow Rate FiO2 09/23/21 08:58 68 124/54 09/23/21 08:57 20 Nasal Cannula 2.0 09/23/21 07:00 97.9 99 97.9 Weight Weight [ ] Input and Output Intake and Output Intake and Output 09/23/21 07:00 Intake Total 520 ml Output Total 1500 ml Balance -980 ml Intake Oral 520 ml Output Urine Total 1500 ml # Bowel Movements 1 Physical Exam HEENT: Neck Supple W Full Motion Chest: Symmetric LUNGS: Other (diminished bases) Heart: irregularly irregular (AFIB, rate controlled ) Abdomen: Soft N/T, Other (obese) Extremities: No Edema Neurology: alert, follow commands Assessment Assessment 1. Weakness, FTT 2. Acute on chronic respiratory failure 3. Mid acute on chronic diastolic CHF; improved s/p IV diuresis. Recent echo with preserved LV systolic function 4. PAFIB presenting with RVR; rate now controlled. Had been out of meds. 5. Hypertension; now controlled 6. Hyperlipidemia 7. COPD 8. H/o CVA 9. Hyponatremia Recommendations Lasix PRN Continue Cardizem for rate control On ASA therapy. [place] to be poor candidate for OAC given weakness, fall risk Consider outpatient ischemic evaluation Supportive care Follow up in our office with Dr. Marrufo has been arranged Justicifation of Admission Dx: Justifications for Admission: Justification of Admission Dx: Yes CHF: Cardiac Arrhythmias KIMBERLEY MARRUFO MD 09/23/211931: CARDIO Progress Notes Assessment Assessment Patient seen and examined. Agree with HOOK UP's assessment and plan. Ac on chr diast HF better compensated Atrial fib rate better controlled She is poor candidate for [facility] anticoagulation Consider outpatient ischemic evaluation ZAIRA CHI APRN Sep 23, 2021 09:19 KIMBERLEY MARRUFO MD Sep 23, 2021 19:32
[2021-09-23 11:00] VITALS: BP 108/49
--- NOTE | 2021-09-23 12:52 | NUR ---
SS following up with discharge planning. SS reviewed pt chart and discussed with pt RN. Pt is currently requiring oxygen at two liters nasal canula. COVID19 negative. PT/OT recommended senior care unit. Referral was sent to [facility] and pt was declined for senior care unit. Pt is current on services with [facility], ; fax [phone]. Cardiology following. SS will continue to follow for discharge planning.
[2021-09-23 15:00] VITALS: BP 145/79
[2021-09-23 19:00] VITALS: BP 103/60
[2021-09-23 23:00] VITALS: BP 113/44
[2021-09-24 02:52] VITALS: BP 120/52
[2021-09-24 07:00] VITALS: BP 120/52
--- NOTE | 2021-09-24 08:09 | PDOC ---
Provider Note Date of Service: DATE: 09/24/21 TIME: 08:07 Provider Note this is her 3rd admit in 1 month re weakness, falls, she cannot go home until she is stronger , re her need for snf- next admit could be for fracture or brain injury , not medically able to be in home environment- not safe for needed oac re same risk- rest of meds same Justifications for Admission Other Justification MAI LYON MD Sep 24, 2021 08:09
[2021-09-24] MEDS: levETIRAcetam 500 MG TABLET PO SCH ×2 (08:28→20:12)
[2021-09-24] MEDS: hydroCHLOROthiazide 25 MG TABLET PO SCH (08:28)
[2021-09-24] MEDS: ASPIRIN CHEWABLE 81 MG TABLET. PO SCH (08:28)
[2021-09-24] MEDS: traMADol 50 MG TABLET PO SCH ×2 (08:28→20:13)
[2021-09-24] MEDS: LISINOPRIL 20 MG TABLET PO SCH (08:29)
[2021-09-24 11:00] VITALS: BP 130/57
[2021-09-24 15:00] VITALS: BP 117/55
[2021-09-24 18:46] VITALS: BP 101/58
--- NOTE | 2021-09-24 22:01 | PDOC ---
CARDIOLOGY PROGRESS NOTE SUBJECTIVE: No new changes. OBJECTIVE: Vital Signs/I&O: Vital Signs Date Time Temp Pulse Resp B/P (MAP) Pulse Ox O2 Delivery O2 Flow Rate FiO2 09/24/21 20:43 98 Nasal Cannula 2.0 09/24/21 18:46 97.8 83 16 101/58 (72) 97.8 I & O 09/23/21 09/23/21 09/24/21 15:00 23:00 07:00 Intake Total 118 ml 100 ml Output Total 600 ml Balance 118 ml 100 ml -600 ml Objective: GEN.: No apparent distress. sleepy HEENT: Head is normocephalic, atraumatic NECK: Supple. LUNGS: Clear to auscultation. HEART: irr irr, S1, S2 present. Peripheral pulses intact ABDOMEN: Soft, nontender. Positive bowel sounds. EXTREMITIES: Without any cyanosis. SKIN: No ulcerations CURRENT MEDICATIONS: Reviewed DIAGNOSTIC TESTING: Labs reviewed. ASSESSMENT: 1. Weakness, FTT 2. Acute on chronic respiratory failure 3. Mid acute on chronic diastolic CHF; improved s/p IV diuresis. Recent echo with preserved LV systolic function 4. PAFIB presenting with RVR; rate now controlled. Had been out of meds. 5. Hypertension; now controlled 6. Hyperlipidemia 7. COPD 8. H/o CVA 9. Hyponatremia PLAN: 1. Continue present meds. No new issues. Justicifation of Admission Dx: Justifications for Admission: Justification of Admission Dx: Yes CHF: Cardiac Arrhythmias ANDERSON DE LA PAZ MD Sep 24, 2021 22:01
[2021-09-24 22:28] VITALS: BP 100/44
[2021-09-25 02:50] VITALS: BP 123/56
[2021-09-25 07:55] VITALS: BP 124/61
[2021-09-25] MEDS: hydroCHLOROthiazide 25 MG TABLET PO SCH (08:49)
[2021-09-25] MEDS: levETIRAcetam 500 MG TABLET PO SCH ×2 (08:50→20:38)
[2021-09-25] MEDS: LISINOPRIL 20 MG TABLET PO SCH (08:50)
[2021-09-25] MEDS: ASPIRIN CHEWABLE 81 MG TABLET. PO SCH (08:50)
[2021-09-25] MEDS: traMADol 50 MG TABLET PO SCH ×2 (08:51→20:39)
--- NOTE | 2021-09-25 10:03 | PN ---
DATE: 09/25/2021 LOCATION: She is in room 669. SUBJECTIVE: This is an 80-year-old female with known COPD, was admitted with AFib with rapid ventricular response and came back for generalized weakness and unable to do self-care at home. She was started back on IV diltiazem with current control of heart rate, but generalized weakness and felt unsafe by primary to return home and looking for different placement at this point in time. OBJECTIVE: GENERAL: The patient is awake, alert, states that she feels fairly good, but extremely weak. She does have some family members who live at home. CHEST: Reveals decreased breath sounds. HEART: Irregularly irregular with normal rate. ABDOMEN: Obese and benign. EXTREMITIES: No significant edema. NEUROLOGIC: Intact. ASSESSMENT: 1. Failure to thrive. 2. Atrial fibrillation with rapid ventricular response. 3. Chronic obstructive pulmonary disease. PLAN: Continue present care with therapy ongoing. Looking towards some sort of an environment other than home at discharge. Apparently insurance would not approve the same at last discharge, which was very recent. SANCHEZ DR: Roxie TID: [id number]
[2021-09-25 10:13] VITALS: BP 114/63
--- NOTE | 2021-09-25 14:27 | PDOC ---
CARDIOLOGY PROGRESS NOTE SUBJECTIVE: Patient denies any current chest pain or dyspnea but she is confused. OBJECTIVE: Vital Signs/I&O: Vital Signs Date Time Temp Pulse Resp B/P (MAP) Pulse Ox O2 Delivery O2 Flow Rate FiO2 09/25/21 10:13 98.4 83 18 114/63 (80) 98 Nasal Cannula 2.0 98.4 l I & O 09/24/21 09/24/21 09/25/21 15:00 23:00 07:00 Intake Total 218 ml 120 ml 120 ml Output Total 1600 ml Balance 218 ml 120 ml -1480 ml Objective: GEN.: No apparent distress. She is pleasantly confused HEENT: Head is normocephalic, atraumatic NECK: Supple. LUNGS: Clear to auscultation. HEART: Irregularly S1, S2 present. Peripheral pulses intact ABDOMEN: Soft, nontender. Positive bowel sounds. EXTREMITIES: Without any cyanosis. NEUROLOGIC: Normal speech, normal tone PSYCHIATRIC: She appears depressed SKIN: No ulcerations CURRENT MEDICATIONS: Aspirin, diltiazem, lisinopril DIAGNOSTIC TESTING: Labs reviewed ASSESSMENT: 1. Weakness, FTT 2. Acute on chronic respiratory failure 3. Mid acute on chronic diastolic CHF; improved s/p IV diuresis. Recent echo with preserved LV systolic function 4. PAFIB presenting with RVR; rate now controlled. Had been out of meds. 5. Hypertension; now controlled 6. Hyperlipidemia 7. COPD 8. H/o CVA 9. Hyponatremia Recommendations Lasix PRN Continue Cardizem for rate control On ASA therapy. [place] to be poor candidate for OAC given weakness, fall risk Consider outpatient ischemic evaluation Supportive care Follow up in our office with Dr. Marrufo has been arranged Justicifation of Admission Dx: Justifications for Admission: Justification of Admission Dx: Yes CHF: Cardiac Arrhythmias ANDERSON DE LA PAZ MD Sep 25, 2021 14:27
[2021-09-25 18:55] VITALS: BP 87/42
[2021-09-25 22:09] VITALS: BP 97/53
[2021-09-26 03:12] VITALS: BP 119/50
[2021-09-26 06:00] VITALS: BP 97/60
[2021-09-26] MEDS: ASPIRIN CHEWABLE 81 MG TABLET. PO SCH (08:27)
[2021-09-26] MEDS: levETIRAcetam 500 MG TABLET PO SCH ×2 (08:27→20:37)
[2021-09-26] MEDS: traMADol 50 MG TABLET PO SCH ×2 (08:27→20:37)
[2021-09-26] MEDS: LISINOPRIL 20 MG TABLET PO SCH (09:00)
[2021-09-26] MEDS: hydroCHLOROthiazide 25 MG TABLET PO SCH (09:00)
--- NOTE | 2021-09-26 09:53 | PN ---
DATE: 09/26/2021 DAILY PROGRESS NOTE LOCATION: She is in room 669. SUBJECTIVE: This 80-year-old female, known COPD, was admitted with AFib with rapid ventricular response. She came back to the hospital because of generalized weakness and inability to do self care. She was started back on IV diltiazem with heart rate control, but remains generalized weak and was felt unsafe by primary to return to home and looking for different placement at this point in time. OBJECTIVE: GENERAL: The patient is awake, alert, ate essentially all of her breakfast, states she feels still quite weak and is scared falling. CHEST: Reveals decreased breath sounds. HEART: Irregularly irregular with normal rate. ABDOMEN: Obese and benign. No significant edema. NEUROLOGIC: Intact. ASSESSMENT: 1. Failure to thrive. 2. Atrial fibrillation with rapid ventricular response, controlled. 3. Chronic obstructive pulmonary disease. PLAN: Continue present care. Therapy ongoing. We will defer to Dr. Walsh on his return tomorrow as far as discharge destination. SANCHEZ DR: Roxie TID: [id number]
[2021-09-26 11:00] VITALS: BP 111/72
--- NOTE | 2021-09-26 14:13 | PDOC ---
CARDIOLOGY PROGRESS NOTE SUBJECTIVE: No acute events overnight. The patient is resting comfortably in bed. She is mostly bedbound and unable to walk OBJECTIVE: Vital Signs/I&O: Vital Signs Date Time Temp Pulse Resp B/P (MAP) Pulse Ox O2 Delivery O2 Flow Rate FiO2 09/26/21 11:00 98.7 83 17 111/72 (85) 99 Nasal Cannula 2.0 98.7 I & O 09/25/21 09/25/21 09/26/21 15:00 23:00 07:00 Intake Total 540 ml 0 ml 150 ml Output Total 250 ml Balance 540 ml 0 ml -100 ml Objective: GEN.: No apparent distress. Alert and oriented. HEENT: Head is normocephalic, atraumatic NECK: Supple. LUNGS: Clear to auscultation. HEART: Irregularly irregular, S1, S2 present. Peripheral pulses intact ABDOMEN: Soft, nontender. Positive bowel sounds. EXTREMITIES: Without any cyanosis. NEUROLOGIC: Normal speech, normal tone PSYCHIATRIC: Normal affect, normal mood. SKIN: No ulcerations ASSESSMENT: ASSESSMENT: 1. Weakness, FTT 2. Acute on chronic respiratory failure 3. Mid acute on chronic diastolic CHF; improved s/p IV diuresis. Recent echo with preserved LV systolic function 4. PAFIB presenting with RVR; rate now controlled. Had been out of meds. 5. Hypertension; now controlled 6. Hyperlipidemia 7. COPD 8. H/o CVA 9. Hyponatremia Recommendations Lasix PRN Continue Cardizem for rate control On ASA therapy. [place] to be poor candidate for OAC given weakness, fall risk Consider outpatient ischemic evaluation Decrease lisinopril to 20 mg and hydrochlorothiazide 12.5 mg given hypotension. Continue other medications as is Supportive care Follow up in our office with Dr. Marrufo has been arranged Justicifation of Admission Dx: Justifications for Admission: Justification of Admission Dx: Yes CHF: Cardiac Arrhythmias ANDERSON DE LA PAZ MD Sep 26, 2021 14:13
[2021-09-26 15:00] VITALS: BP 108/54
[2021-09-26 19:15] VITALS: BP 116/63
[2021-09-26 23:11] VITALS: BP 96/66
[2021-09-27 03:09] VITALS: BP 119/65
[2021-09-27] MEDS ORDERED: traMADol 50 MG TABLET PO PRN (05:00)
[2021-09-27 07:00] VITALS: BP 112/58
[2021-09-27] MEDS: ASPIRIN CHEWABLE 81 MG TABLET. PO SCH (08:11)
[2021-09-27] MEDS: levETIRAcetam 500 MG TABLET PO SCH ×2 (08:11→20:05)
[2021-09-27] MEDS: LISINOPRIL 20 MG TABLET PO SCH (08:11)
[2021-09-27] MEDS ORDERED: hydroCHLOROthiazide 12.5 MG TABLET PO SCH (09:00)
--- NOTE | 2021-09-27 09:25 | PDOC ---
Provider Note Date of Service: DATE: 09/27/21 TIME: 09:24 Provider Note status same, will hold hctz re lower bp- needs snf re 3rd admit after home dc, despite care Justifications for Admission Other Justification MAI LYON MD Sep 27, 2021 09:25
--- NOTE | 2021-09-27 09:44 | SNU/HH DC ---
DISCHARGE WITH HOME HEALTH DISCHARGE INFORMATION: Final Diagnosis: Problems Medical Problems: (1) Acute exacerbation of CHF (congestive heart failure) Status: Acute (2) Atrial fibrillation with rapid ventricular response Status: Acute Condition on Discharge: Stable CODE STATUS: Code Status: Full HOME HEALTH: Face to Face: I certify this patient is under my care and that I, or a nurse practitioner or physician's medical clerical assistant working with me, had a face to face encounter that meets the physician face to face encounter requirements with this patient on []. Medical Complications: COPD, Falls RN For Eval/Treatment: Yes Pt Meets Homebound Status: Extreme weakness w/ amb., Unable to negotiate home POST DISCHARGE ORDERS: Activity Instructions for Disc: Activity as tolerated Weight Bearing Status after Di: As tolerated DIET AFTER DISCHARGE: Regular Wound/Incision Care: Other, see below TREATMENT/EQUIPMENT ORDERS: Adaptive Equipment Issued: None CERTIFICATION STATEMENT: Certification Statement: Certification Statement: Based on the above finding, I certify that this patient is confined to the home and needs intermittent fci care, physical therapy and/or speech therapy, or continues to need occupational therapy.~ This patient is under my care, and I have initiated the establishment of the plan of care.~ This patient will be followed by myself or a community physician who will periodically review the plan of care. Home Meds Reported Medications Rivaroxaban (XARELTO) 15 Mg Tablet, 1 TAB PO DAILY for a-fib MDD 15 09/05/21 Carbamazepine (CARBAMAZEPINE) 200 Mg Tablet, 200 MG PO BID for ., TAB 08/12/21 Levetiracetam (KEPPRA) 500 Mg Tablet, 1 TAB PO BID, #180 TAB 3 Refills 02/22/17 Ibuprofen (IBUPROFEN) 800 Mg Tablet, 1 TAB PO TID PRN for PAIN, #90 TAB 1 Refill 01/01/15 Tramadol Hcl (TRAMADOL HCL) 50 Mg Tablet, 50 MG PO BID 06/22/13 Lorazepam (LORAZEPAM) 2 Mg Tablet, 2 MG PO HS 06/22/13 Aspirin (ASPIRIN) 325 Mg Tablet, 325 MG PO DAILY 06/22/13 Hydrocortisone/Aloe Vera (HYDROCORTISONE 1% OINTMENT) 28 Gm Oint...g., 28 GM TP DAILY 06/22/13 Hydrochlorothiazide (HYDROCHLOROTHIAZIDE TABLET ) 25 Mg Tablet, 25 MG PO DAILY 1/11/14 Lisinopril (LISINOPRIL) 40 Mg Tablet, 40 MG PO DAILY 06/22/13 MAI LYON MD Sep 27, 2021 09:44
--- NOTE | 2021-09-27 09:48 | PDOC ---
Provider Note Date of Service: DATE: 09/27/21 TIME: 09:45 Provider Note [id number] Justifications for Admission Other Justification MAI LYON MD Sep 27, 2021 09:48
[2021-09-27 11:00] VITALS: BP 140/57
[2021-09-27] MEDS: traMADol 50 MG TABLET PO SCH ×2 (12:42→20:06)
--- NOTE | 2021-09-27 14:04 | NUR ---
SS following up with discharge planning. SS reviewed pt chart and discussed with pt RN. Pt is currently requiring oxygen at two liters nasal canula. COVID19 negative. PT/OT recommended prison unit. Pt was declined for prison unit. Pt is current on services with [facility], ; fax [phone]. SS and Ceci from [facility] spoke with pt and family in room. Family reported that they are applying for Medicaid but would like pt to remain at home and are requesting screening for hospice. Referral sent to [facility], ; fax [phone]. SS will continue to follow for discharge planning. Addendum: 09/27/21 at 1520 by CRYS PÉREZ SS [facility] evaluating pt and scheduling meeting with family. Dr. Walsh notified. Pt's family requesting DNR. Dr. Walsh notified.
[2021-09-27 15:00] VITALS: BP 100/51
--- NOTE | 2021-09-27 16:15 | PDOC ---
ZAIRA CHI APRN 09/27/21 1615: CARDIO Progress Notes Date and Time Date of Service 09/27/21 Time of Evaluation 1215 Subjective Subjective: No Chest Pain, No shortness of breath, No Palpitations, No Dizziness Vitals Vitals Vital Signs Date Time Temp Pulse Resp B/P (MAP) Pulse Ox O2 Delivery O2 Flow Rate FiO2 09/27/21 15:00 97.4 82 20 100/51 (67) 96 Nasal Cannula 2.0 97.4 Weight Weight [ ] Input and Output Intake and Output Intake and Output 09/27/21 07:00 Intake Total 0 ml Output Total 400 ml Balance -400 ml Intake Oral 0 ml Output Urine Total 400 ml # Voids 4 # Bowel Movements 3 Physical Exam HEENT: Neck Supple W Full Motion Chest: Symmetric LUNGS: Other (diminished bases) Heart: irregularly irregular (AFIB, rate controlled ) Abdomen: Soft N/T, Other (obese) Extremities: No Edema Neurology: alert, oriented, follow commands Assessment Assessment 1. Weakness, FTT 2. Acute on chronic respiratory failure 3. Mid acute on chronic diastolic CHF; improved s/p IV diuresis. Recent echo with preserved LV systolic function 4. PAFIB presenting with RVR; rate now controlled. 5. Hypertension; now controlled 6. Hyperlipidemia 7. COPD 8. H/o CVA 9. Hyponatremia Recommendations Continue Cardizem for rate control On ASA therapy. [place] to be poor candidate for OAC given weakness, fall risk Consider outpatient ischemic evaluation Supportive care Follow up in our office with Dr. Marrufo has been arranged Justicifation of Admission Dx: Justifications for Admission: Justification of Admission Dx: Yes CHF: Cardiac Arrhythmias KIMBERLEY MARRUFO MD 09/27/212104: CARDIO Progress Notes Assessment Assessment Patient seen and examined. Agree with WORKFORCE MANAGEMENT ANALYST's assessment and plan. Ac on chr diast HF better compensated Atrial fib rate better controlled She is poor candidate for prison anticoagulation Consider outpatient ischemic evaluation ZAIRA CHI APRN Sep 27, 2021 16:15 KIMBERLEY MARRUFO MD Sep 27, 2021 21:05
[2021-09-27 19:20] VITALS: BP 117/70
[2021-09-27 22:21] VITALS: BP 102/53
--- NOTE | 2021-09-28 00:34 | DS ---
DATE OF DISCHARGE: 09/27/2021 HOSPITAL SUMMARY: An 80-year-old white female with chronic atrial fibrillation and generalized weakness, was refused by insurance to go to [facility] on last admission and lasted over 3-4 days at home and came back in with weakness and inability to function in her home setting. Her atrial fibrillation was treated with IV and oral diltiazem and no other abnormalities were found on her lab or x-rays. half-way was suggested again, but was declined by insurance and she is again discharged to home setting with home health, understanding that likely she will fail this environment and will be readmitted. Insurance is aware of this and aware of the risk that she takes of significant injury by going home without skilled care ____ the patient. FINAL DIAGNOSES: 1. Acute atrial fibrillation with rapid ventricular response. 2. Generalized weakness secondary to deconditioning. OPERATIONS, PROCEDURES AND COMPLICATIONS: None. CONSULTATION: Dr. Rendon. DISPOSITION: Home meds remain the same including diltiazem, tramadol, low dose aspirin. She is off most of her meds and will not take oral anticoagulants given her high fall risk, and risk of bleeding. PROGNOSIS: Poor given underlying home condition. TERESITA/BASHIR/[facility] [place]: TERESITA/marcelo TID: [id number]
[2021-09-28 02:23] VITALS: BP 110/51
[2021-09-28 07:00] VITALS: BP 107/63
--- NOTE | 2021-09-28 07:51 | PDOC ---
Provider Note Date of Service: DATE: 09/28/21 TIME: 07:50 Provider Note status same, sh wants dnr and hospice now re HH- ordered, family conference today Justifications for Admission Other Justification MAI LYON MD Sep 28, 2021 07:51
[2021-09-28] MEDS: ASPIRIN CHEWABLE 81 MG TABLET. PO SCH (08:21)
[2021-09-28] MEDS: traMADol 50 MG TABLET PO SCH (08:21)
[2021-09-28] MEDS: levETIRAcetam 500 MG TABLET PO SCH (08:22)
[2021-09-28] MEDS: LISINOPRIL 20 MG TABLET PO SCH (08:22)
--- NOTE | 2021-09-28 10:44 | NUR ---
SS following up with discharge planning. SS reviewed pt chart and discussed with pt RN. Pt is currently requiring oxygen at two liters nasal canula. COVID19 negative. Pt accepted on services with [facility], ; fax [phone]. Discharge orders received and provided to [facility]. Pt will discharge today and return to home with [facility] between 1230 and 1300 via [facility]. Pt's RN notified.
[2021-09-28 10:52] VITALS: BP 93/47
--- NOTE | 2021-09-28 11:46 | NUR ---
Discharged patient to home with hospice. PIV and heart monitor removed. Patient off unit per a stretcher.
--- NOTE | 2021-10-08 08:39 | PDOC ---
Provider Note Date of Service: DATE: 10/08/21 TIME: 08:37 Provider Note [id number] Justifications for Admission Other Justification MAI LYON MD Oct 08, 2021 08:39
== END 2021-09-28 11:45 | disposition hospice, home (50) | DRG 291 ==
LOC: ER 18:32 → 6 SOUTH 20:00
PROVIDERS: ADMIT Family Medicine; ATTEND Family Medicine
DX: I11.0 Hypertensive heart disease with heart failure (principal); I50.33 Acute on chronic diastolic (congestive) heart failure; J96.20 Acute and chronic respiratory failure, unspecified whether with hypoxia or hypercapnia; E87.1 Hypo-osmolality and hyponatremia; E78.5 Hyperlipidemia, unspecified; G25.81 Restless legs syndrome; G40.909 Epilepsy, unspecified, not intractable, without status epilepticus; I48.0 Paroxysmal atrial fibrillation; J44.9 Chronic obstructive pulmonary disease, unspecified; R32 Unspecified urinary incontinence; R62.7 Adult failure to thrive; Z79.01 Long term (current) use of anticoagulants; Z82.49 Family history of ischemic heart disease and other diseases of the circulatory system; Z85.42 Personal history of malignant neoplasm of other parts of uterus; Z86.73 Personal history of transient ischemic attack (TIA), and cerebral infarction without residual deficits; Z90.710 Acquired absence of both cervix and uterus; F41.9 Anxiety disorder, unspecified; K21.9 Gastro-esophageal reflux disease without esophagitis; M19.90 Unspecified osteoarthritis, unspecified site; Z88.0 Allergy status to penicillin; Z88.8 Allergy status to other drugs, medicaments and biological substances; Z66 Do not resuscitate
CPT/HCPCS: 36415; 71045; 80048; 80053; 82962; 83880; 84145; 84484; 85025; 85610; 85730; 87426; 87428; 93005; 96374; 96375; 96376; J1940; J3490; J7060; U0003; 97530-GO; 97530-GP; 97535-GO; 99291-25; G0378